=== PATIENT | male | born 1950 | race Caucasian/White ===

== ENCOUNTER 2020-07-07 14:06 | Inpatient (IN) | payer OTHER ==
[~2020-07-07] VITALS: Ht 167.6 cm; Wt 108.0 kg
[~2020-07-07 14:06] MED LIST: ASPIR 8181 MG PO; ATORVASTATIN CA80 MG PO; CARBIDOPA-LEVO1 EACH PO; CLOPIDOGREL75 MG PO; FISH OIL 1,2001 EACH PO; ISOSORBIDE DINI30 MG PO; JANUMET 50-5001 EACH PO; LISINOPRIL5 MG PO; METOPROLOL SUCC25 MG PO; REQUIP XL4 MG PO; SERTRALINE HCL50 MG PO
[2020-07-07] MEDS ORDERED: SINEMET PO (14:37)
[2020-07-07 14:38] LABS: BASOPHILS % 0.4 % (0.0-1.0); EOSINOPHILS # (AUTO) 0.2 (0.0-0.4); EOSINOPHILS % 3.4 % (0.0-6.0); HEMATOCRIT 26.8 % (38.2-49.6); HEMOGLOBIN 8.9 g/dL (14.0-18.0); LYMPHOCYTES % 14.9 % (18.0-39.1); MEAN CORPUSCULAR HEMOGLOBIN 31.7 pg (28-32); MEAN CORPUSCULAR HGB CONC 33.2 g/dL (31-35); MEAN CORPUSCULAR VOLUME 95.4 fL (81-99); MONOCYTES # (AUTO) 0.6 (0.2-0.8); MONOCYTES % 8.8 % (4.4-11.3); NEUTROPHILS # (AUTO) 4.8 (2.1-6.9); NEUTROPHILS % 72.2 % (38.7-80.0); PLATELET COUNT 277 x10e3/uL (140-360); RED BLOOD COUNT 2.81 x10e6/uL (4.3-5.7); RED CELL DISTRIBUTION WIDTH 14.6 % (11.7-14.4)
[2020-07-07] MEDS ORDERED: ELIQUIS5 MG PO (14:44)
[2020-07-07] MEDS ORDERED: NOVOLOG MI100 UNIT/1 SC (14:44)
[2020-07-07] MEDS ORDERED: GENTEAL TEARS SE8 ML (14:44)
[2020-07-07] MEDS ORDERED: METOPROLOL SUCC25 MG PO (14:44)
[2020-07-07] MEDS ORDERED: FEROSUL325 MG PO (14:44)
[2020-07-07] MEDS ORDERED: REFRESH PLUS1 EACH OU (14:44)
[2020-07-07] MEDS ORDERED: ROPINIROLE HCL1 MG PO (14:44)
[2020-07-07] MEDS ORDERED: LASIX20 MG PO (14:44)
[2020-07-07] MEDS ORDERED: VOLTAREN-XR100 MG PO (14:44)
[2020-07-07] MEDS ORDERED: ISOSORBIDE MONO30 MG PO (14:44)
[2020-07-07] MEDS ORDERED: ENTACAPONE200 MG PO (14:44)
[2020-07-07] MEDS ORDERED: POTASSIUM CHLO10 ME1 PO (14:44)
[2020-07-07] MEDS ORDERED: TYLENOL # 31 EA PO (14:44)
[2020-07-07] MEDS ORDERED: BASAGLAR K100 UNIT/1 SQ (14:45)
[2020-07-07 14:54] LABS: INR 1.03; PROTHROMBIN TIME 14.1 seconds (11.9-14.5)
[2020-07-07 14:55] LABS: ALBUMIN 3.1 g/dL (3.5-5.0); ALBUMIN/GLOBULIN RATIO 0.9 (0.8-2.0); ANION GAP 16.1 mmol/L (8-16); CALCIUM 8.5 mg/dL (8.4-10.2); CREATININE, SERUM 1.22 mg/dL (0.72-1.25); MAGNESIUM 2.1 MG/DL (1.3-2.1); PARTIAL THROMBOPLASTIN TIME 38.5 seconds (23.8-35.5); POTASSIUM 4.1 mmol/L (3.5-5.1)
[2020-07-07 15:34] LABS: CREATINE KINASE MB 2.3 ng/mL (0-5.0); THYROID STIMULATING HORMONE 0.815 uIU/mL (0.350-4.940)
[2020-07-07] MEDS: MEROPENEM 1GM 100 ML IV SCH (15:34)
[2020-07-07 15:55] LABS: COLOR,URINE ORANGE (YELLOW)
[2020-07-07 15:56] LABS: CLARITY,URINE SL CLOUDY (CLEAR); KETONES,URINE 1+ (NEGATIVE); LEUKOCYTE ESTERASE ,URINE NEGATIVE (NEGATIVE); NITRITE,URINE NEGATIVE (NEGATIVE); PROTEIN,URINE DIPSTICK 1+ (NEGATIVE); URINE UROBILINOGEN 0.2 mg/dL (0.2 - 1)
[2020-07-07 16:09] LABS: BACTERIA,URINE MODERATE /HPF; EPITHELIAL CELLS,URINE FEW /LPF
[2020-07-07] MEDS ORDERED: FUROSEMIDE INJ 10 MG/ML 2 ML VIAL IV ONE (17:45)
[2020-07-07] MEDS ORDERED: ONDANSETRON HCL INJ 2MG/ML 2ML 2 MG/ML VIAL IV PRN (18:00)
[2020-07-07 20:20] VITALS: BP 123/58
[2020-07-07 21:45] VITALS: BP 123/58
[2020-07-07] MEDS ORDERED: SINEMET 25-1001 EACH PO (22:31)
[2020-07-07] MEDS ORDERED: ACETAMINOPHEN/CODEINE 300MG - 30MG TAB PO PRN (22:45)
[2020-07-08] VITALS (8 sets, daily range): BP systolic 99–135; BP diastolic 53–72
[2020-07-08 07:59] LABS: CREATINE KINASE MB 1.2 ng/mL (0-5.0)
[2020-07-08 08:16] LABS: ALANINE AMINOTRANSFERASE 23 IU/L (0-55); ALBUMIN/GLOBULIN RATIO 0.9 (0.8-2.0); ALKALINE PHOSPHATASE 95 IU/L (40-150); ANION GAP 13.2 mmol/L (8-16); BLOOD UREA NITROGEN 21 mg/dL (7-26); BUN/CREATININE RATIO 21 (6-25); CALCIUM 8.5 mg/dL (8.4-10.2); CARBON DIOXIDE 24 mmol/L (22-29); CHLORIDE 104 mmol/L (98-107); CHOL/HDL RATIO 4.4 (3.9-4.7); CHOLESTEROL 153 MD/DL (0-199); CREATININE, SERUM 1.02 mg/dL (0.72-1.25); EST GLOMERULAR FILTRATION RATE > 60 ML/MIN (60-); GLUCOSE 186 mg/dL (74-118); HDL CHOLESTEROL 35 MG/DL (40-60); LDL CHOLESTEROL 91 MG/DL (60-130); POTASSIUM 4.2 mmol/L (3.5-5.1); SODIUM 137 mmol/L (136-145); TRIGLYCERIDES 137 MG/DL (0-149)
[2020-07-08] MEDS ORDERED: DEXTROSE 50% SYRINGE 50 ML IV PRN (08:30)
[2020-07-08] MEDS ORDERED: FUROSEMIDE 20 MG TAB PO SCH (09:00)
[2020-07-08] MEDS ORDERED: APIXABAN 5 MG TABLET PO SCH (09:00)
[2020-07-08] MEDS: ENTACAPONE PO SCH ×4 (09:00→20:30)
[2020-07-08] MEDS ORDERED: INSULIN ASPART 70/30 100 UNITS/ML VIAL SC SCH (09:00)
[2020-07-08] MEDS ORDERED: ROPINIROLE HCL 1 MG TAB PO SCH (09:00)
[2020-07-08] MEDS: MEROPENEM 1GM 100 ML IV SCH ×4 (09:05→23:45)
[2020-07-08] MEDS: INSULIN ASPART 70/30 100 UNITS/ML VIAL SC SCH ×3 (09:08→16:18)
[2020-07-08] MEDS: ISOSORBIDE MONONITRATE 30 MG TAB CR PO SCH (09:11)
[2020-07-08] MEDS: FERROUS SULFATE 325 MG TAB PO SCH ×2 (09:11→17:51)
[2020-07-08] MEDS: ATORVASTATIN 40 MG TAB PO SCH (09:12)
[2020-07-08] MEDS: CARBIDOPA/LEVODOPA 25/100 TAB PO SCH ×4 (09:12→20:30)
[2020-07-08 09:14] LABS: BASOPHILS % 0.2 % (0.0-1.0); EOSINOPHILS # (AUTO) 0.2 (0.0-0.4); EOSINOPHILS % 1.9 % (0.0-6.0); HEMATOCRIT 28.6 % (38.2-49.6); HEMOGLOBIN 9.7 g/dL (14.0-18.0); LYMPHOCYTES # (AUTO) 0.8 (1.0-3.2); LYMPHOCYTES % 8.5 % (18.0-39.1); MEAN CORPUSCULAR HEMOGLOBIN 32.1 pg (28-32); MEAN CORPUSCULAR HGB CONC 33.9 g/dL (31-35); MEAN CORPUSCULAR VOLUME 94.7 fL (81-99); MONOCYTES # (AUTO) 0.7 (0.2-0.8); MONOCYTES % 7.3 % (4.4-11.3); NEUTROPHILS # (AUTO) 7.6 (2.1-6.9); NEUTROPHILS % 81.8 % (38.7-80.0); PLATELET COUNT 275 x10e3/uL (140-360); RED BLOOD COUNT 3.02 x10e6/uL (4.3-5.7); RED CELL DISTRIBUTION WIDTH 14.4 % (11.7-14.4)
[2020-07-08 09:16] LABS: THYROID STIMULATING HORMONE 0.773 uIU/mL (0.350-4.940)
[2020-07-08] MEDS: POTASSIUM CHLORIDE 10MEQ EA PO SCH ×2 (09:22→17:51)
[2020-07-08] MEDS: METOPROLOL SUCCINATE 25 MG TAB XL PO SCH (09:23)
[2020-07-08] MEDS: ROPINIROLE HCL 2 MG TAB PO SCH ×4 (09:23→20:30)
[2020-07-08] MEDS: DICLOFENAC SOD 50 MG TAB PO SCH (09:25)
[2020-07-08] MEDS: FUROSEMIDE INJ 10 MG/ML 4 ML VIAL IV SCH (12:25)
[2020-07-08] MEDS: INSULIN LISPRO 100 UNIT/1 ML 3ML VIAL SQ SCH ×3 (12:25→20:23)
[2020-07-08 15:18] LABS: CREATINE KINASE MB 1.1 ng/mL (0-5.0)
[2020-07-08] MEDS: INSULIN GLARGINE 100 UNITS/ML VIAL SQ SCH (20:30)
[2020-07-08] MEDS: APIXABAN 5 MG TABLET PO SCH (20:30)
[2020-07-08] MEDS ORDERED: INSULIN GLARGINE 100 UNITS/ML VIAL SQ SCH (21:00)
[2020-07-09] VITALS (7 sets, daily range): BP systolic 101–124; BP diastolic 53–74
[2020-07-09 05:54] LABS: BASOPHILS % 0.3 % (0.0-1.0); EOSINOPHILS # (AUTO) 0.3 (0.0-0.4); EOSINOPHILS % 3.4 % (0.0-6.0); HEMATOCRIT 28.4 % (38.2-49.6); HEMOGLOBIN 9.4 g/dL (14.0-18.0); LYMPHOCYTES # (AUTO) 0.8 (1.0-3.2); LYMPHOCYTES % 10.3 % (18.0-39.1); MEAN CORPUSCULAR HEMOGLOBIN 31.8 pg (28-32); MEAN CORPUSCULAR HGB CONC 33.1 g/dL (31-35); MEAN CORPUSCULAR VOLUME 95.9 fL (81-99); MONOCYTES # (AUTO) 0.6 (0.2-0.8); NEUTROPHILS # (AUTO) 5.7 (2.1-6.9); NEUTROPHILS % 77.7 % (38.7-80.0); PLATELET COUNT 269 x10e3/uL (140-360); RED BLOOD COUNT 2.96 x10e6/uL (4.3-5.7); RED CELL DISTRIBUTION WIDTH 14.5 % (11.7-14.4)
[2020-07-09 06:30] LABS: ANION GAP 15.1 mmol/L (8-16); BLOOD UREA NITROGEN 23 mg/dL (7-26); BUN/CREATININE RATIO 26 (6-25); CALCIUM 8.2 mg/dL (8.4-10.2); CARBON DIOXIDE 23 mmol/L (22-29); CHLORIDE 105 mmol/L (98-107); CREATININE, SERUM 0.87 mg/dL (0.72-1.25); EST GLOMERULAR FILTRATION RATE > 60 ML/MIN (60-); GLUCOSE 128 mg/dL (74-118); POTASSIUM 4.1 mmol/L (3.5-5.1); SODIUM 139 mmol/L (136-145)
[2020-07-09 06:44] LABS: MAGNESIUM 2.1 MG/DL (1.3-2.1); PHOSPHORUS 3.4 MG/DL (2.3-4.7)
[2020-07-09] MEDS: FUROSEMIDE INJ 10 MG/ML 4 ML VIAL IV SCH ×2 (08:23→12:07)
[2020-07-09] MEDS: APIXABAN 5 MG TABLET PO SCH ×2 (08:26→21:07)
[2020-07-09] MEDS: ENTACAPONE PO SCH ×5 (08:26→21:07)
[2020-07-09] MEDS: FERROUS SULFATE 325 MG TAB PO SCH ×2 (08:26→17:00)
[2020-07-09] MEDS: MEROPENEM 1GM 100 ML IV SCH ×2 (08:26→16:24)
[2020-07-09] MEDS: POTASSIUM CHLORIDE 10MEQ EA PO SCH ×2 (08:27→17:00)
[2020-07-09] MEDS: ISOSORBIDE MONONITRATE 30 MG TAB CR PO SCH (08:27)
[2020-07-09] MEDS: ATORVASTATIN 40 MG TAB PO SCH (08:28)
[2020-07-09] MEDS: METOPROLOL SUCCINATE 25 MG TAB XL PO SCH (08:28)
[2020-07-09] MEDS: ROPINIROLE HCL 2 MG TAB PO SCH ×5 (08:28→21:07)
[2020-07-09] MEDS: CARBIDOPA/LEVODOPA 25/100 TAB PO SCH ×5 (08:28→21:07)
[2020-07-09] MEDS: DICLOFENAC SOD 50 MG TAB PO SCH (08:29)
[2020-07-09] MEDS: INSULIN ASPART 70/30 100 UNITS/ML VIAL SC SCH ×3 (08:34→16:24)
[2020-07-09] MEDS: INSULIN LISPRO 100 UNIT/1 ML 3ML VIAL SQ SCH ×4 (08:35→20:40)
[2020-07-09] MEDS: GLUCAGON FOR INJ 1 MG VIAL IV STA (19:45)
[2020-07-09] MEDS: INSULIN GLARGINE 100 UNITS/ML VIAL SQ SCH (20:40)
[2020-07-10] VITALS (10 sets, daily range): BP systolic 96–118; BP diastolic 54–72
[2020-07-10] MEDS: MEROPENEM 1GM 100 ML IV SCH ×2 (00:17→09:05)
[2020-07-10 06:16] LABS: BLOOD UREA NITROGEN 21 mg/dL (7-26); BUN/CREATININE RATIO 25 (6-25); CALCIUM 8.4 mg/dL (8.4-10.2); CARBON DIOXIDE 24 mmol/L (22-29); CHLORIDE 104 mmol/L (98-107); CREATININE, SERUM 0.85 mg/dL (0.72-1.25); EST GLOMERULAR FILTRATION RATE > 60 ML/MIN (60-); GLUCOSE 138 mg/dL (74-118); SODIUM 139 mmol/L (136-145)
[2020-07-10] MEDS: ATORVASTATIN 40 MG TAB PO SCH (09:00)
[2020-07-10] MEDS: ENTACAPONE PO SCH ×4 (09:05→20:22)
[2020-07-10] MEDS: APIXABAN 5 MG TABLET PO SCH ×2 (09:05→20:22)
[2020-07-10] MEDS: FUROSEMIDE INJ 10 MG/ML 4 ML VIAL IV SCH ×2 (09:05→13:00)
[2020-07-10] MEDS: FERROUS SULFATE 325 MG TAB PO SCH ×2 (09:06→17:39)
[2020-07-10] MEDS: METOPROLOL SUCCINATE 25 MG TAB XL PO SCH (09:06)
[2020-07-10] MEDS: ROPINIROLE HCL 2 MG TAB PO SCH ×4 (09:06→20:22)
[2020-07-10] MEDS: CARBIDOPA/LEVODOPA 25/100 TAB PO SCH ×4 (09:06→20:22)
[2020-07-10] MEDS: DICLOFENAC SOD 50 MG TAB PO SCH (09:06)
[2020-07-10] MEDS: ISOSORBIDE MONONITRATE 30 MG TAB CR PO SCH (09:06)
[2020-07-10] MEDS: POTASSIUM CHLORIDE 10MEQ EA PO SCH ×2 (09:06→17:40)
[2020-07-10] MEDS: INSULIN ASPART 70/30 100 UNITS/ML VIAL SC SCH ×3 (09:09→15:49)
[2020-07-10] MEDS: INSULIN LISPRO 100 UNIT/1 ML 3ML VIAL SQ SCH ×4 (09:14→20:23)
[2020-07-10] MEDS: AMOXICILLIN/CLAV (ORAL SUSP) 250 MG/5 ML SUSP PO SCH (17:39)
[2020-07-10] MEDS: INSULIN GLARGINE 100 UNITS/ML VIAL SQ SCH (20:24)
[2020-07-11 00:41] VITALS: BP 109/64
[2020-07-11 04:00] VITALS: BP 104/61
[2020-07-11 05:47] LABS: BASOPHILS % 0.5 % (0.0-1.0); EOSINOPHILS # (AUTO) 0.3 (0.0-0.4); EOSINOPHILS % 5.6 % (0.0-6.0); LYMPHOCYTES % 16.5 % (18.0-39.1); MEAN CORPUSCULAR HEMOGLOBIN 31.3 pg (28-32); MEAN CORPUSCULAR HGB CONC 33.3 g/dL (31-35); MONOCYTES # (AUTO) 0.6 (0.2-0.8); MONOCYTES % 9.5 % (4.4-11.3); NEUTROPHILS % 67.7 % (38.7-80.0); PLATELET COUNT 309 x10e3/uL (140-360); RED BLOOD COUNT 3.19 x10e6/uL (4.3-5.7); RED CELL DISTRIBUTION WIDTH 14.1 % (11.7-14.4)
[2020-07-11 06:09] LABS: ANION GAP 14.1 mmol/L (8-16); BLOOD UREA NITROGEN 23 mg/dL (7-26); BUN/CREATININE RATIO 26 (6-25); CALCIUM 8.5 mg/dL (8.4-10.2); CARBON DIOXIDE 25 mmol/L (22-29); CHLORIDE 103 mmol/L (98-107); CREATININE, SERUM 0.88 mg/dL (0.72-1.25); EST GLOMERULAR FILTRATION RATE > 60 ML/MIN (60-); GLUCOSE 103 mg/dL (74-118); POTASSIUM 4.1 mmol/L (3.5-5.1); SODIUM 138 mmol/L (136-145)
[2020-07-11] MEDS: INSULIN LISPRO 100 UNIT/1 ML 3ML VIAL SQ SCH ×2 (07:30→12:10)
[2020-07-11 07:47] VITALS: BP 122/63
[2020-07-11 08:30] VITALS: BP 122/63
[2020-07-11] MEDS: ENTACAPONE PO SCH (08:43)
[2020-07-11] MEDS: INSULIN ASPART 70/30 100 UNITS/ML VIAL SC SCH ×2 (08:43→12:09)
[2020-07-11] MEDS: FUROSEMIDE INJ 10 MG/ML 4 ML VIAL IV SCH (08:43)
[2020-07-11] MEDS: APIXABAN 5 MG TABLET PO SCH (08:44)
[2020-07-11] MEDS: FERROUS SULFATE 325 MG TAB PO SCH (08:44)
[2020-07-11] MEDS: AMOXICILLIN/CLAV (ORAL SUSP) 250 MG/5 ML SUSP PO SCH (08:44)
[2020-07-11] MEDS: ISOSORBIDE MONONITRATE 30 MG TAB CR PO SCH (08:44)
[2020-07-11] MEDS: POTASSIUM CHLORIDE 10MEQ EA PO SCH (08:46)
[2020-07-11] MEDS: ATORVASTATIN 40 MG TAB PO SCH (08:47)
[2020-07-11] MEDS: ROPINIROLE HCL 2 MG TAB PO SCH (08:47)
[2020-07-11] MEDS: CARBIDOPA/LEVODOPA 25/100 TAB PO SCH (08:47)
[2020-07-11] MEDS: METOPROLOL SUCCINATE 25 MG TAB XL PO SCH (08:47)
[2020-07-11] MEDS: DICLOFENAC SOD 50 MG TAB PO SCH (08:47)
[2020-07-11 11:43] VITALS: BP 105/62
== END 2020-07-11 12:38 | disposition home or self-care (01) | DRG 293 ==
LOC: ER 14:23 → ERHOLD 18:07 → MED/SURG 20:19
PROVIDERS: ADMIT Internal Medicine; ATTEND Internal Medicine
DX: I11.0 Hypertensive heart disease with heart failure (principal); I50.33 Acute on chronic diastolic (congestive) heart failure; E11.21 Type 2 diabetes mellitus with diabetic nephropathy; G20 Parkinson's disease; E66.01 Morbid (severe) obesity due to excess calories; Z68.38 Body mass index [BMI] 38.0-38.9, adult; I25.10 Atherosclerotic heart disease of native coronary artery without angina pectoris; Z95.5 Presence of coronary angioplasty implant and graft; E11.42 Type 2 diabetes mellitus with diabetic polyneuropathy; Z79.4 Long term (current) use of insulin; K22.8 Other specified diseases of esophagus; T18.120A Food in esophagus causing compression of trachea, initial encounter; Z20.822 Contact with and (suspected) exposure to COVID-19; S80.812A Abrasion, left lower leg, initial encounter; S80.811A Abrasion, right lower leg, initial encounter; I48.91 Unspecified atrial fibrillation; G25.81 Restless legs syndrome
CPT/HCPCS: 36415; 71045; 80048; 80053; 80061; 81001; 82550; 82553; 82607; 82746; 82948; 83036; 83540; 83735; 83880; 84100; 84443; 84466; 84484; 85025; 85610; 85730; 87040; 87086; 93005; 93306; 96372; 99284; J1610; J1815; J1940; J7799; U0002

== ENCOUNTER 2020-09-22 02:56 | Emergency (ER) | payer MEDICARE, OTHER ==
[~2020-09-22] VITALS: Ht 320 cm; Wt 108.0 kg
[~2020-09-22 02:56] MED LIST changes: +BASAGLAR K100 UNIT/1 SQ; +ELIQUIS5 MG PO; +ENTACAPONE200 MG PO; +FEROSUL325 MG PO; +GENTEAL TEARS SE8 ML; +ISOSORBIDE MONO30 MG PO; +LASIX20 MG PO; +NOVOLOG MI100 UNIT/1 SC; +POTASSIUM CHLO10 ME1 PO; +REFRESH PLUS1 EACH OU; +ROPINIROLE HCL1 MG PO; +SINEMET 25-1001 EACH PO; +SINEMET PO; +TYLENOL # 31 EA PO; +VOLTAREN-XR100 MG PO
[2020-09-22 03:51] LABS: BASOPHILS % 0.5 % (0.0-1.0); EOSINOPHILS # (AUTO) 0.2 (0.0-0.4); EOSINOPHILS % 2.5 % (0.0-6.0); HEMATOCRIT 33.4 % (38.2-49.6); HEMOGLOBIN 11.4 g/dL (14.0-18.0); LYMPHOCYTES # (AUTO) 1.2 (1.0-3.2); LYMPHOCYTES % 18.9 % (18.0-39.1); MEAN CORPUSCULAR HGB CONC 34.1 g/dL (31-35); MEAN CORPUSCULAR VOLUME 90.8 fL (81-99); MONOCYTES # (AUTO) 0.6 (0.2-0.8); MONOCYTES % 9.1 % (4.4-11.3); NEUTROPHILS # (AUTO) 4.4 (2.1-6.9); NEUTROPHILS % 68.5 % (38.7-80.0); PLATELET COUNT 250 x10e3/uL (140-360); RED BLOOD COUNT 3.68 x10e6/uL (4.3-5.7); RED CELL DISTRIBUTION WIDTH 13.2 % (11.7-14.4)
[2020-09-22 04:12] LABS: ALANINE AMINOTRANSFERASE 20 IU/L (0-55); ALBUMIN 3.6 g/dL (3.5-5.0); ALKALINE PHOSPHATASE 117 IU/L (40-150); ANION GAP 17.4 mmol/L (8-16); BLOOD UREA NITROGEN 27 mg/dL (7-26); BUN/CREATININE RATIO 21 (6-25); CALCIUM 9.2 mg/dL (8.4-10.2); CARBON DIOXIDE 24 mmol/L (22-29); CHLORIDE 101 mmol/L (98-107); CREATINE KINASE 123 IU/L (30-200); CREATININE, SERUM 1.31 mg/dL (0.72-1.25); EST GLOMERULAR FILTRATION RATE 54 ML/MIN (60-); GLUCOSE 365 mg/dL (74-118); POTASSIUM 4.4 mmol/L (3.5-5.1); SODIUM 138 mmol/L (136-145)
[2020-09-22 05:26] VITALS: BP 124/68
== END 2020-09-22 05:40 | disposition home or self-care (01) ==
LOC: ER 03:10
DX: R20.2 Paresthesia of skin (principal); M79.605 Pain in left leg; M79.604 Pain in right leg
CPT/HCPCS: 36415; 71045; 80053; 82550; 82553; 83880; 84484; 85025; 93970; 99284

== ENCOUNTER 2020-10-19 15:09 | Emergency (ER) | payer MEDICARE ==
[~2020-10-19] VITALS: Ht 320 cm; Wt 108.0 kg
[2020-10-19 15:51] LABS: BASOPHILS % 0.3 % (0.0-1.0); EOSINOPHILS # (AUTO) 0.1 (0.0-0.4); EOSINOPHILS % 0.8 % (0.0-6.0); HEMOGLOBIN 11.1 g/dL (14.0-18.0); LYMPHOCYTES # (AUTO) 0.6 (1.0-3.2); LYMPHOCYTES % 7.8 % (18.0-39.1); MEAN CORPUSCULAR HEMOGLOBIN 30.7 pg (28-32); MEAN CORPUSCULAR HGB CONC 33.6 g/dL (31-35); MEAN CORPUSCULAR VOLUME 91.2 fL (81-99); MONOCYTES # (AUTO) 0.4 (0.2-0.8); MONOCYTES % 5.7 % (4.4-11.3); NEUTROPHILS # (AUTO) 6.1 (2.1-6.9); NEUTROPHILS % 85.1 % (38.7-80.0); PLATELET COUNT 175 x10e3/uL (140-360); RED BLOOD COUNT 3.62 x10e6/uL (4.3-5.7)
[2020-10-19 16:10] LABS: ALBUMIN 3.4 g/dL (3.5-5.0); ALBUMIN/GLOBULIN RATIO 1.1 (0.8-2.0); ANION GAP 14.9 mmol/L (8-16); CALCIUM 8.6 mg/dL (8.4-10.2); CREATININE, SERUM 1.13 mg/dL (0.72-1.25); POTASSIUM 3.9 mmol/L (3.5-5.1)
[2020-10-19] MEDS ORDERED: INSULIN REGULAR, HUMAN 100 UNIT/1 ML SQ ONE (16:30)
[2020-10-19] MEDS ORDERED: SODIUM CHLORIDE 0.9% 1000ML 1,000 ML IV SCH (16:30)
[2020-10-19 17:48] LABS: CLARITY,URINE CLEAR (CLEAR); COLOR,URINE YELLOW (YELLOW)
[2020-10-19 17:49] LABS: KETONES,URINE NEGATIVE (NEGATIVE); LEUKOCYTE ESTERASE ,URINE NEGATIVE (NEGATIVE); NITRITE,URINE NEGATIVE (NEGATIVE); PROTEIN,URINE DIPSTICK NEGATIVE (NEGATIVE); URINE UROBILINOGEN 0.2 mg/dL (0.2 - 1)
[2020-10-19 17:55] LABS: BACTERIA,URINE FEW /HPF; EPITHELIAL CELLS,URINE RARE /LPF
== END 2020-10-19 20:45 | disposition other institution (70) ==
LOC: ER 15:15
DX: E11.65 Type 2 diabetes mellitus with hyperglycemia (principal); R26.89 Other abnormalities of gait and mobility; Z91.81 History of falling; Z20.822 Contact with and (suspected) exposure to COVID-19; I50.9 Heart failure, unspecified; D64.9 Anemia, unspecified; I25.10 Atherosclerotic heart disease of native coronary artery without angina pectoris; I25.2 Old myocardial infarction
CPT/HCPCS: 36415; 70450; 71045; 72125; 80053; 81001; 82948; 84484; 85025; 93005; 99284; J1817; U0002

== ENCOUNTER 2021-03-23 10:34 | Inpatient (IN) | payer MEDICARE ==
[~2021-03-23] VITALS: Ht 167.6 cm; Wt 108.0 kg
[2021-03-23 12:55] LABS: BASOPHILS % 0.3 % (0.0-1.0); EOSINOPHILS # (AUTO) 0.1 (0.0-0.4); EOSINOPHILS % 1.4 % (0.0-6.0); HEMATOCRIT 28.2 % (38.2-49.6); HEMOGLOBIN 9.2 g/dL (14.0-18.0); LYMPHOCYTES # (AUTO) 0.5 (1.0-3.2); MEAN CORPUSCULAR HEMOGLOBIN 31.6 pg (28-32); MEAN CORPUSCULAR HGB CONC 32.6 g/dL (31-35); MEAN CORPUSCULAR VOLUME 96.9 fL (81-99); MONOCYTES # (AUTO) 0.4 (0.2-0.8); MONOCYTES % 6.5 % (4.4-11.3); NEUTROPHILS # (AUTO) 5.4 (2.1-6.9); NEUTROPHILS % 83.5 % (38.7-80.0); PLATELET COUNT 228 x10e3/uL (140-360); RED BLOOD COUNT 2.91 x10e6/uL (4.3-5.7); RED CELL DISTRIBUTION WIDTH 13.3 % (11.7-14.4)
[2021-03-23] MEDS: Vancomycin IV 1 GM in SODIUM CHLORIDE 0.9% 250ML 250 ML IV SCH (13:16)
[2021-03-23] MEDS: PIPERACILLIN/TAZOBACTAM 3.375 GM in SODIUM CHLORIDE 0.9% 50ML 50 ML IV SCH ×2 (13:16→21:50)
[2021-03-23 13:18] LABS: ALBUMIN 3.8 g/dL (3.5-5.0); ALBUMIN/GLOBULIN RATIO 1.3 (0.8-2.0); ANION GAP 13.6 mmol/L (8-16); BLOOD UREA NITROGEN 20 mg/dL (7-26); BUN/CREATININE RATIO 16 (6-25); CALCIUM 9.8 mg/dL (8.4-10.2); CARBON DIOXIDE 23 mmol/L (22-29); CHLORIDE 107 mmol/L (98-107); CREATINE KINASE 184 IU/L (30-200); CREATININE, SERUM 1.24 mg/dL (0.72-1.25); EST GLOMERULAR FILTRATION RATE 58 ML/MIN (60-); GLUCOSE 256 mg/dL (74-118); POTASSIUM 3.6 mmol/L (3.5-5.1); SODIUM 140 mmol/L (136-145)
[2021-03-23 13:39] LABS: ALKALINE PHOSPHATASE 131 IU/L (40-150)
[2021-03-23 14:04] LABS: ALANINE AMINOTRANSFERASE < 6 IU/L (0-55)
[2021-03-23] MEDS ORDERED: SODIUM CHLORIDE 0.9% 1000ML 1,000 ML IV SCH (15:45)
[2021-03-23] MEDS ORDERED: ONDANSETRON HCL INJ 2MG/ML 2ML 2 MG/ML VIAL IV PRN (15:45)
[2021-03-23] MEDS ORDERED: DEXTROSE 50% SYRINGE 50 ML IV PRN (15:45)
[2021-03-23] MEDS: INSULIN LISPRO 100 UNIT/1 ML 3ML VIAL SQ SCH ×2 (16:38→20:45)
[2021-03-23 17:01] VITALS: BP 120/57
[2021-03-23 18:15] VITALS: BP 120/57
[2021-03-23 18:19] VITALS: BP 120/57
[2021-03-23 20:45] VITALS: BP 117/54
[2021-03-23] MEDS: CARBIDOPA/LEVODOPA 25/100 TAB PO SCH (20:45)
[2021-03-23] MEDS: ROPINIROLE HCL 1 MG TAB PO SCH (20:45)
[2021-03-23 20:54] VITALS: BP 117/54
[2021-03-23] MEDS: ENTACAPONE 200 MG PO SCH (20:55)
[2021-03-24] VITALS (8 sets, daily range): BP systolic 94–119; BP diastolic 50–67
[2021-03-24] MEDS: CARBIDOPA/LEVODOPA 25/100 TAB PO SCH ×4 (03:45→21:13)
[2021-03-24] MEDS: ROPINIROLE HCL 1 MG TAB PO SCH ×2 (03:45→09:00)
[2021-03-24 05:34] LABS: BASOPHILS % 0.4 % (0.0-1.0); EOSINOPHILS # (AUTO) 0.2 (0.0-0.4); EOSINOPHILS % 3.8 % (0.0-6.0); HEMATOCRIT 25.3 % (38.2-49.6); HEMOGLOBIN 8.4 g/dL (14.0-18.0); LYMPHOCYTES # (AUTO) 0.5 (1.0-3.2); LYMPHOCYTES % 9.7 % (18.0-39.1); MEAN CORPUSCULAR HEMOGLOBIN 31.2 pg (28-32); MEAN CORPUSCULAR HGB CONC 33.2 g/dL (31-35); MEAN CORPUSCULAR VOLUME 94.1 fL (81-99); MONOCYTES # (AUTO) 0.3 (0.2-0.8); MONOCYTES % 5.9 % (4.4-11.3); NEUTROPHILS # (AUTO) 3.8 (2.1-6.9); PLATELET COUNT 197 x10e3/uL (140-360); RED BLOOD COUNT 2.69 x10e6/uL (4.3-5.7); RED CELL DISTRIBUTION WIDTH 13.3 % (11.7-14.4)
[2021-03-24 06:05] LABS: ALBUMIN 2.9 g/dL (3.5-5.0); ALKALINE PHOSPHATASE 111 IU/L (40-150); ANION GAP 12.3 mmol/L (8-16); BLOOD UREA NITROGEN 14 mg/dL (7-26); BUN/CREATININE RATIO 13 (6-25); CALCIUM 8.6 mg/dL (8.4-10.2); CARBON DIOXIDE 21 mmol/L (22-29); CHLORIDE 110 mmol/L (98-107); CREATINE KINASE 112 IU/L (30-200); CREATININE, SERUM 1.06 mg/dL (0.72-1.25); EST GLOMERULAR FILTRATION RATE 69 ML/MIN (60-); GLUCOSE 153 mg/dL (74-118); POTASSIUM 3.3 mmol/L (3.5-5.1); SODIUM 140 mmol/L (136-145)
[2021-03-24 06:10] LABS: ALANINE AMINOTRANSFERASE < 6 IU/L (0-55)
[2021-03-24] MEDS: PIPERACILLIN/TAZOBACTAM 3.375 GM in SODIUM CHLORIDE 0.9% 50ML 50 ML IV SCH ×3 (06:17→23:00)
[2021-03-24] MEDS: INSULIN LISPRO 100 UNIT/1 ML 3ML VIAL SQ SCH ×4 (07:30→21:13)
[2021-03-24] MEDS ORDERED: ONDANSETRON HCL 4 MG ORAL DISINTEGRATING TAB PO PRN (08:00)
[2021-03-24] MEDS: ENTACAPONE 200 MG PO SCH ×3 (09:00→21:12)
[2021-03-24] MEDS: FERROUS SULFATE 325 MG TAB PO SCH ×2 (09:00→18:00)
[2021-03-24] MEDS: DICLOFENAC SOD 50 MG TAB PO SCH (09:00)
[2021-03-24] MEDS: METOPROLOL SUCCINATE 25 MG TAB XL PO SCH (09:00)
[2021-03-24] MEDS: ISOSORBIDE MONONITRATE 30 MG TAB CR PO SCH (09:00)
[2021-03-24] MEDS: POTASSIUM CHLORIDE 10MEQ EA PO SCH ×2 (09:00→18:00)
[2021-03-24] MEDS ORDERED: APIXABAN 5 MG TABLET PO SCH (09:00)
[2021-03-24] MEDS: Vancomycin IV 1 GM in SODIUM CHLORIDE 0.9% 250ML 250 ML IV SCH ×2 (10:00→21:12)
[2021-03-24 10:57] LABS: THYROID STIMULATING HORMONE 0.658 uIU/mL (0.350-4.940)
[2021-03-24] MEDS ORDERED: GADOBENATE DIMEGLUMINE 1 ML IV ONE (11:28)
[2021-03-24] MEDS: ENOXAPARIN INJ 80 MG/0.8 ML SYR SC SCH ×2 (12:00→21:12)
[2021-03-24] MEDS ORDERED: ROPINIROLE HCL 2 MG TAB PO SCH (13:00)
[2021-03-24 17:07] LABS: CREATINE KINASE 91 IU/L (30-200)
[2021-03-24] MEDS: ROPINIROLE HCL 2 MG TAB PO SCH (21:12)
[2021-03-24] MEDS: ATORVASTATIN 40 MG TAB PO SCH (21:12)
[2021-03-25] VITALS (8 sets, daily range): BP systolic 93–127; BP diastolic 49–60
[2021-03-25] MEDS: CARBIDOPA/LEVODOPA 25/100 TAB PO SCH ×3 (05:18→18:00)
[2021-03-25] MEDS: ENTACAPONE 200 MG PO SCH ×3 (05:18→18:00)
[2021-03-25] MEDS: ROPINIROLE HCL 2 MG TAB PO SCH ×3 (05:18→18:00)
[2021-03-25] MEDS: PIPERACILLIN/TAZOBACTAM 3.375 GM in SODIUM CHLORIDE 0.9% 50ML 50 ML IV SCH ×3 (06:07→22:57)
[2021-03-25 06:28] LABS: BASOPHILS % 0.6 % (0.0-1.0); EOSINOPHILS # (AUTO) 0.3 (0.0-0.4); EOSINOPHILS % 5.3 % (0.0-6.0); HEMOGLOBIN 8.7 g/dL (14.0-18.0); LYMPHOCYTES # (AUTO) 0.6 (1.0-3.2); LYMPHOCYTES % 10.6 % (18.0-39.1); MEAN CORPUSCULAR HEMOGLOBIN 31.4 pg (28-32); MEAN CORPUSCULAR HGB CONC 32.2 g/dL (31-35); MEAN CORPUSCULAR VOLUME 97.5 fL (81-99); MONOCYTES # (AUTO) 0.4 (0.2-0.8); MONOCYTES % 6.6 % (4.4-11.3); NEUTROPHILS # (AUTO) 4.1 (2.1-6.9); NEUTROPHILS % 76.7 % (38.7-80.0); PLATELET COUNT 199 x10e3/uL (140-360); RED BLOOD COUNT 2.77 x10e6/uL (4.3-5.7); RED CELL DISTRIBUTION WIDTH 13.3 % (11.7-14.4)
[2021-03-25 07:04] LABS: ANION GAP 14.6 mmol/L (8-16); CALCIUM 8.9 mg/dL (8.4-10.2); CREATININE, SERUM 1.09 mg/dL (0.72-1.25); POTASSIUM 3.6 mmol/L (3.5-5.1)
[2021-03-25 07:05] LABS: MAGNESIUM 1.7 MG/DL (1.3-2.1); PHOSPHORUS 3.3 MG/DL (2.3-4.7)
[2021-03-25] MEDS: INSULIN LISPRO 100 UNIT/1 ML 3ML VIAL SQ SCH ×4 (07:30→21:13)
[2021-03-25] MEDS: POTASSIUM CHLORIDE 10MEQ EA PO SCH ×2 (09:00→17:00)
[2021-03-25] MEDS: FERROUS SULFATE 325 MG TAB PO SCH ×2 (09:00→17:00)
[2021-03-25] MEDS: METOPROLOL SUCCINATE 25 MG TAB XL PO SCH (09:00)
[2021-03-25] MEDS: DICLOFENAC SOD 50 MG TAB PO SCH (09:00)
[2021-03-25] MEDS: ENOXAPARIN INJ 80 MG/0.8 ML SYR SC SCH ×2 (09:00→21:12)
[2021-03-25] MEDS: ISOSORBIDE MONONITRATE 30 MG TAB CR PO SCH (09:00)
[2021-03-25] MEDS: Vancomycin IV 1 GM in SODIUM CHLORIDE 0.9% 250ML 250 ML IV SCH ×2 (09:22→21:12)
[2021-03-25] MEDS ORDERED: SODIUM CHLORIDE 0.9% 250ML 250 ML ONE (21:02)
[2021-03-25] MEDS: ATORVASTATIN 40 MG TAB PO SCH (21:12)
[2021-03-26] VITALS (8 sets, daily range): BP systolic 107–126; BP diastolic 47–56
[2021-03-26] MEDS: ENTACAPONE 200 MG PO SCH ×5 (00:01→23:45)
[2021-03-26] MEDS: CARBIDOPA/LEVODOPA 25/100 TAB PO SCH ×5 (00:01→23:45)
[2021-03-26] MEDS: ROPINIROLE HCL 2 MG TAB PO SCH ×5 (00:01→23:45)
[2021-03-26] MEDS: PIPERACILLIN/TAZOBACTAM 3.375 GM in SODIUM CHLORIDE 0.9% 50ML 50 ML IV SCH ×3 (06:15→22:01)
[2021-03-26] MEDS: INSULIN LISPRO 100 UNIT/1 ML 3ML VIAL SQ SCH ×4 (07:30→21:00)
[2021-03-26] MEDS: POTASSIUM CHLORIDE 10MEQ EA PO SCH ×2 (09:15→16:52)
[2021-03-26] MEDS: METOPROLOL SUCCINATE 25 MG TAB XL PO SCH (09:15)
[2021-03-26] MEDS: FERROUS SULFATE 325 MG TAB PO SCH ×2 (09:15→16:51)
[2021-03-26] MEDS: ENOXAPARIN INJ 80 MG/0.8 ML SYR SC SCH ×2 (09:15→22:00)
[2021-03-26] MEDS: DICLOFENAC SOD 50 MG TAB PO SCH (09:15)
[2021-03-26] MEDS ORDERED: DEXAMETHASONE 4 MG TAB PO SCH (12:00)
[2021-03-26] MEDS: ATORVASTATIN 40 MG TAB PO SCH (22:00)
[2021-03-27] VITALS (8 sets, daily range): BP systolic 118–146; BP diastolic 53–66
[2021-03-27] MEDS: ENTACAPONE 200 MG PO SCH ×3 (06:00→17:52)
[2021-03-27] MEDS: CARBIDOPA/LEVODOPA 25/100 TAB PO SCH ×3 (06:00→17:52)
[2021-03-27] MEDS: ROPINIROLE HCL 2 MG TAB PO SCH ×3 (06:00→17:52)
[2021-03-27] MEDS: PIPERACILLIN/TAZOBACTAM 3.375 GM in SODIUM CHLORIDE 0.9% 50ML 50 ML IV SCH ×3 (06:38→21:48)
[2021-03-27 06:59] LABS: BASOPHILS % 0.3 % (0.0-1.0); EOSINOPHILS # (AUTO) 0.1 (0.0-0.4); EOSINOPHILS % 0.9 % (0.0-6.0); HEMATOCRIT 27.4 % (38.2-49.6); HEMOGLOBIN 9.5 g/dL (14.0-18.0); LYMPHOCYTES # (AUTO) 0.3 (1.0-3.2); LYMPHOCYTES % 4.7 % (18.0-39.1); MEAN CORPUSCULAR HEMOGLOBIN 32.2 pg (28-32); MEAN CORPUSCULAR HGB CONC 34.7 g/dL (31-35); MEAN CORPUSCULAR VOLUME 92.9 fL (81-99); MONOCYTES # (AUTO) 0.3 (0.2-0.8); MONOCYTES % 3.9 % (4.4-11.3); NEUTROPHILS # (AUTO) 5.9 (2.1-6.9); NEUTROPHILS % 89.9 % (38.7-80.0); PLATELET COUNT 226 x10e3/uL (140-360); RED BLOOD COUNT 2.95 x10e6/uL (4.3-5.7); RED CELL DISTRIBUTION WIDTH 13.1 % (11.7-14.4)
[2021-03-27 07:23] LABS: ANION GAP 15.7 mmol/L (8-16); CREATININE, SERUM 0.98 mg/dL (0.72-1.25); POTASSIUM 3.7 mmol/L (3.5-5.1)
[2021-03-27] MEDS: FERROUS SULFATE 325 MG TAB PO SCH ×2 (09:10→16:44)
[2021-03-27] MEDS: POTASSIUM CHLORIDE 10MEQ EA PO SCH ×2 (09:10→16:44)
[2021-03-27] MEDS: DICLOFENAC SOD 50 MG TAB PO SCH (09:11)
[2021-03-27] MEDS: METOPROLOL SUCCINATE 25 MG TAB XL PO SCH (09:11)
[2021-03-27] MEDS: ENOXAPARIN INJ 80 MG/0.8 ML SYR SC SCH ×2 (09:11→21:47)
[2021-03-27] MEDS: INSULIN LISPRO 100 UNIT/1 ML 3ML VIAL SQ SCH ×4 (09:42→21:55)
[2021-03-27] MEDS ORDERED: ACETAMINOPHEN/CODEINE 300MG - 30MG TAB PO PRN (10:30)
[2021-03-27] MEDS: CELECOXIB 100 MG CAP PO SCH ×2 (12:02→16:43)
[2021-03-27] MEDS ORDERED: INSULIN GLARGINE 100 UNITS/ML VIAL SQ SCH (21:00)
[2021-03-27] MEDS: ATORVASTATIN 40 MG TAB PO SCH (21:47)
[2021-03-28] VITALS: BP 123/62
[2021-03-28] MEDS: CARBIDOPA/LEVODOPA 25/100 TAB PO SCH ×4 (00:33→16:53)
[2021-03-28] MEDS: ENTACAPONE 200 MG PO SCH ×4 (00:33→16:53)
[2021-03-28] MEDS: ROPINIROLE HCL 2 MG TAB PO SCH ×4 (00:33→16:53)
[2021-03-28 04:00] VITALS: BP 106/54
[2021-03-28] MEDS: PIPERACILLIN/TAZOBACTAM 3.375 GM in SODIUM CHLORIDE 0.9% 50ML 50 ML IV SCH ×3 (06:37→21:15)
[2021-03-28 07:11] LABS: ANION GAP 12.6 mmol/L (8-16); CALCIUM 8.7 mg/dL (8.4-10.2); CREATININE, SERUM 1.12 mg/dL (0.72-1.25); POTASSIUM 3.6 mmol/L (3.5-5.1)
[2021-03-28 07:18] LABS: BASOPHILS % 0.3 % (0.0-1.0); EOSINOPHILS # (AUTO) 0.1 (0.0-0.4); EOSINOPHILS % 1.8 % (0.0-6.0); HEMATOCRIT 25.2 % (38.2-49.6); HEMOGLOBIN 8.2 g/dL (14.0-18.0); LYMPHOCYTES # (AUTO) 0.5 (1.0-3.2); LYMPHOCYTES % 7.3 % (18.0-39.1); MEAN CORPUSCULAR HEMOGLOBIN 31.5 pg (28-32); MEAN CORPUSCULAR HGB CONC 32.5 g/dL (31-35); MEAN CORPUSCULAR VOLUME 96.9 fL (81-99); MONOCYTES # (AUTO) 0.4 (0.2-0.8); MONOCYTES % 6.5 % (4.4-11.3); NEUTROPHILS # (AUTO) 5.7 (2.1-6.9); PLATELET COUNT 195 x10e3/uL (140-360); RED CELL DISTRIBUTION WIDTH 13.2 % (11.7-14.4)
[2021-03-28] MEDS: INSULIN LISPRO 100 UNIT/1 ML 3ML VIAL SQ SCH ×4 (07:30→21:00)
[2021-03-28] MEDS: CELECOXIB 100 MG CAP PO SCH ×2 (08:04→16:53)
[2021-03-28] MEDS: METOPROLOL SUCCINATE 25 MG TAB XL PO SCH (08:04)
[2021-03-28] MEDS: FERROUS SULFATE 325 MG TAB PO SCH ×2 (08:04→16:53)
[2021-03-28] MEDS: POTASSIUM CHLORIDE 10MEQ EA PO SCH ×2 (08:04→16:53)
[2021-03-28] MEDS: ENOXAPARIN INJ 80 MG/0.8 ML SYR SC SCH ×2 (08:06→21:11)
[2021-03-28 08:17] VITALS: BP 100/48
[2021-03-28 08:54] VITALS: BP 100/48
[2021-03-28] MEDS ORDERED: DIPHENHYDRAMINE HCL 25 MG CAP PO PRN (10:00)
[2021-03-28] MEDS ORDERED: ACETAMINOPHEN 325 MG TAB PO PRN (10:00)
[2021-03-28 10:36] LABS: THYROID STIMULATING HORMONE 0.738 uIU/mL (0.350-4.940)
[2021-03-28 11:45] VITALS: BP 102/63
[2021-03-28] MEDS ORDERED: SODIUM CHLORIDE 0.9% 250ML 250 ML ONE (11:47)
[2021-03-28] MEDS: IRON SUCROSE 100 MG in SODIUM CHLORIDE 0.9% 100 ML 100 ML IV SCH (11:51)
[2021-03-28 20:00] VITALS: BP 120/55
[2021-03-28] MEDS: INSULIN GLARGINE 100 UNITS/ML VIAL SQ SCH (21:00)
[2021-03-28] MEDS: ATORVASTATIN 40 MG TAB PO SCH (21:11)
[2021-03-29] VITALS (8 sets, daily range): BP systolic 104–150; BP diastolic 54–64
[2021-03-29] MEDS: ROPINIROLE HCL 2 MG TAB PO SCH ×3 (00:30→21:51)
[2021-03-29] MEDS: ENTACAPONE 200 MG PO SCH ×4 (00:30→17:54)
[2021-03-29] MEDS: CARBIDOPA/LEVODOPA 25/100 TAB PO SCH ×4 (00:31→17:53)
[2021-03-29] MEDS: PIPERACILLIN/TAZOBACTAM 3.375 GM in SODIUM CHLORIDE 0.9% 50ML 50 ML IV SCH (06:04)
[2021-03-29] MEDS: INSULIN LISPRO 100 UNIT/1 ML 3ML VIAL SQ SCH ×4 (07:30→21:00)
[2021-03-29] MEDS: METOPROLOL SUCCINATE 25 MG TAB XL PO SCH (09:00)
[2021-03-29] MEDS: FOLIC ACID 1 MG TAB PO SCH (09:27)
[2021-03-29] MEDS: CELECOXIB 100 MG CAP PO SCH ×2 (09:27→17:53)
[2021-03-29] MEDS: POTASSIUM CHLORIDE 10MEQ EA PO SCH ×2 (09:28→17:53)
[2021-03-29] MEDS: THIAMINE HCL 100 MG TAB PO SCH (09:28)
[2021-03-29] MEDS: CYANOCOBALAMIN INJ 1,000 MCG/ML VIAL IM SCH (09:29)
[2021-03-29] MEDS: IRON SUCROSE 100 MG in SODIUM CHLORIDE 0.9% 100 ML 100 ML IV SCH (12:06)
[2021-03-29] MEDS: ATORVASTATIN 40 MG TAB PO SCH (21:00)
[2021-03-29] MEDS: INSULIN GLARGINE 100 UNITS/ML VIAL SQ SCH (21:00)
[2021-03-29] MEDS: QUETIAPINE FUMARATE 25 MG TAB PO SCH (21:51)
[2021-03-30] VITALS (8 sets, daily range): BP systolic 94–152; BP diastolic 49–80
[2021-03-30] MEDS: INSULIN LISPRO 100 UNIT/1 ML 3ML VIAL SQ SCH ×4 (07:30→21:00)
[2021-03-30] MEDS: CARBIDOPA/LEVODOPA 25/100 TAB PO SCH ×5 (07:49→23:34)
[2021-03-30] MEDS: ENTACAPONE 200 MG PO SCH ×5 (07:49→23:34)
[2021-03-30] MEDS ORDERED: APIXABAN 5 MG TABLET PO SCH (09:00)
[2021-03-30] MEDS: CELECOXIB 100 MG CAP PO SCH (09:53)
[2021-03-30] MEDS: FOLIC ACID 1 MG TAB PO SCH (09:54)
[2021-03-30] MEDS: METOPROLOL SUCCINATE 25 MG TAB XL PO SCH (09:54)
[2021-03-30] MEDS: THIAMINE HCL 100 MG TAB PO SCH (09:54)
[2021-03-30] MEDS: POTASSIUM CHLORIDE 10MEQ EA PO SCH ×2 (09:54→17:00)
[2021-03-30] MEDS: CYANOCOBALAMIN INJ 1,000 MCG/ML VIAL IM SCH (10:09)
[2021-03-30] MEDS: IRON SUCROSE 100 MG in SODIUM CHLORIDE 0.9% 100 ML 100 ML IV SCH (13:01)
[2021-03-30 14:37] LABS: HEMATOCRIT 28.4 % (38.2-49.6); HEMOGLOBIN 9.3 g/dL (14.0-18.0)
[2021-03-30 15:05] LABS: BASOPHILS % 0.6 % (0.0-1.0); EOSINOPHILS # (AUTO) 0.1 (0.0-0.4); EOSINOPHILS % 1.6 % (0.0-6.0); LYMPHOCYTES # (AUTO) 0.5 (1.0-3.2); LYMPHOCYTES % 7.7 % (18.0-39.1); MEAN CORPUSCULAR HEMOGLOBIN 31.5 pg (28-32); MEAN CORPUSCULAR HGB CONC 32.5 g/dL (31-35); MEAN CORPUSCULAR VOLUME 96.9 fL (81-99); MONOCYTES # (AUTO) 0.4 (0.2-0.8); NEUTROPHILS # (AUTO) 5.9 (2.1-6.9); NEUTROPHILS % 83.8 % (38.7-80.0); PLATELET COUNT 251 x10e3/uL (140-360); RED BLOOD COUNT 2.92 x10e6/uL (4.3-5.7); RED CELL DISTRIBUTION WIDTH 13.2 % (11.7-14.4)
[2021-03-30] MEDS ORDERED: DEXTROSE 5%/0.45% SOD CHL 1,000 ML IV SCH (16:15)
[2021-03-30] MEDS: DEXTROSE 5%/0.45% SOD CHL 1,000 ML IV SCH (17:53)
[2021-03-30] MEDS: ROPINIROLE HCL 2 MG TAB PO SCH (21:00)
[2021-03-30] MEDS: ATORVASTATIN 40 MG TAB PO SCH (21:00)
[2021-03-30] MEDS: QUETIAPINE FUMARATE 25 MG TAB PO SCH (21:00)
[2021-03-30] MEDS: INSULIN GLARGINE 100 UNITS/ML VIAL SQ SCH (21:30)
[2021-03-31] VITALS (7 sets, daily range): BP systolic 106–133; BP diastolic 50–64
[2021-03-31] MEDS: CARBIDOPA/LEVODOPA 25/100 TAB PO SCH ×3 (06:00→17:54)
[2021-03-31] MEDS: ENTACAPONE 200 MG PO SCH ×3 (06:00→17:53)
[2021-03-31 06:10] LABS: BASOPHILS % 0.6 % (0.0-1.0); EOSINOPHILS # (AUTO) 0.2 (0.0-0.4); EOSINOPHILS % 4.6 % (0.0-6.0); HEMATOCRIT 26.5 % (38.2-49.6); HEMOGLOBIN 8.6 g/dL (14.0-18.0); LYMPHOCYTES # (AUTO) 0.8 (1.0-3.2); LYMPHOCYTES % 15.7 % (18.0-39.1); MEAN CORPUSCULAR HEMOGLOBIN 31.6 pg (28-32); MEAN CORPUSCULAR HGB CONC 32.5 g/dL (31-35); MEAN CORPUSCULAR VOLUME 97.4 fL (81-99); MONOCYTES # (AUTO) 0.6 (0.2-0.8); MONOCYTES % 11.4 % (4.4-11.3); NEUTROPHILS # (AUTO) 3.4 (2.1-6.9); NEUTROPHILS % 67.5 % (38.7-80.0); PLATELET COUNT 229 x10e3/uL (140-360); RED BLOOD COUNT 2.72 x10e6/uL (4.3-5.7); RED CELL DISTRIBUTION WIDTH 13.2 % (11.7-14.4)
[2021-03-31] MEDS: DEXTROSE 5%/0.45% SOD CHL 1,000 ML IV SCH (06:28)
[2021-03-31 06:41] LABS: ALBUMIN 2.9 g/dL (3.5-5.0); ALBUMIN/GLOBULIN RATIO 0.9 (0.8-2.0); ANION GAP 8.4 mmol/L (8-16); CALCIUM 8.4 mg/dL (8.4-10.2); CREATININE, SERUM 0.98 mg/dL (0.72-1.25); POTASSIUM 3.4 mmol/L (3.5-5.1)
[2021-03-31] MEDS ORDERED: POTASSIUM CHLORIDE 10MEQ EA PO ONE (08:45)
[2021-03-31] MEDS: POTASSIUM CHLORIDE 10MEQ EA PO SCH ×3 (09:00→17:00)
[2021-03-31] MEDS: FOLIC ACID 1 MG TAB PO SCH ×2 (09:00→09:07)
[2021-03-31] MEDS: METOPROLOL SUCCINATE 25 MG TAB XL PO SCH (09:00)
[2021-03-31] MEDS: THIAMINE HCL 100 MG TAB PO SCH ×2 (09:00→09:07)
[2021-03-31] MEDS: CYANOCOBALAMIN INJ 1,000 MCG/ML VIAL IM SCH (09:07)
[2021-03-31] MEDS: INSULIN LISPRO 100 UNIT/1 ML 3ML VIAL SQ SCH ×4 (09:21→21:00)
[2021-03-31 10:30] LABS: ABG HCO3 -2 mmol/L (22-26); ABG PCO2 34 mmHg (35-45); ABG PO2 63 mmHg (80-105); ABG TCO2 23
[2021-03-31] MEDS: ROPINIROLE HCL 2 MG TAB PO SCH (21:00)
[2021-03-31] MEDS: ATORVASTATIN 40 MG TAB PO SCH (21:00)
[2021-03-31] MEDS ORDERED: QUETIAPINE FUMARATE 25 MG TAB PO SCH (21:00)
[2021-04-01] VITALS (8 sets, daily range): BP systolic 115–149; BP diastolic 53–63
[2021-04-01] MEDS: ENTACAPONE 200 MG PO SCH ×5 (06:00→23:34)
[2021-04-01] MEDS: CARBIDOPA/LEVODOPA 25/100 TAB PO SCH ×5 (06:00→23:34)
[2021-04-01 06:27] LABS: BASOPHILS % 0.5 % (0.0-1.0); EOSINOPHILS # (AUTO) 0.2 (0.0-0.4); EOSINOPHILS % 2.4 % (0.0-6.0); HEMATOCRIT 29.5 % (38.2-49.6); HEMOGLOBIN 9.5 g/dL (14.0-18.0); LYMPHOCYTES # (AUTO) 0.7 (1.0-3.2); MEAN CORPUSCULAR HEMOGLOBIN 31.5 pg (28-32); MEAN CORPUSCULAR HGB CONC 32.2 g/dL (31-35); MEAN CORPUSCULAR VOLUME 97.7 fL (81-99); MONOCYTES # (AUTO) 0.6 (0.2-0.8); MONOCYTES % 8.5 % (4.4-11.3); NEUTROPHILS # (AUTO) 5.1 (2.1-6.9); NEUTROPHILS % 77.3 % (38.7-80.0); PLATELET COUNT 243 x10e3/uL (140-360); RED BLOOD COUNT 3.02 x10e6/uL (4.3-5.7); RED CELL DISTRIBUTION WIDTH 13.4 % (11.7-14.4)
[2021-04-01] MEDS: INSULIN LISPRO 100 UNIT/1 ML 3ML VIAL SQ SCH ×4 (07:30→21:00)
[2021-04-01] MEDS: THIAMINE HCL 100 MG TAB PO SCH (09:00)
[2021-04-01] MEDS: METOPROLOL SUCCINATE 25 MG TAB XL PO SCH (09:00)
[2021-04-01] MEDS: POTASSIUM CHLORIDE 10MEQ EA PO SCH ×2 (09:00→16:03)
[2021-04-01] MEDS: FOLIC ACID 1 MG TAB PO SCH (09:00)
[2021-04-01] MEDS: AMPICILLIN SOD/SULBACTAM 3GM 100 ML IV SCH ×2 (10:35→22:30)
[2021-04-01] MEDS: ROPINIROLE HCL 2 MG TAB PO SCH (21:30)
[2021-04-01] MEDS: ATORVASTATIN 40 MG TAB PO SCH (21:30)
[2021-04-02] VITALS (8 sets, daily range): BP systolic 123–136; BP diastolic 52–66
[2021-04-02] MEDS: ENTACAPONE 200 MG PO SCH ×3 (06:00→17:36)
[2021-04-02] MEDS: CARBIDOPA/LEVODOPA 25/100 TAB PO SCH ×3 (06:00→17:36)
[2021-04-02] MEDS: INSULIN LISPRO 100 UNIT/1 ML 3ML VIAL SQ SCH ×4 (07:30→20:30)
[2021-04-02] MEDS: THIAMINE HCL 100 MG TAB PO SCH (09:00)
[2021-04-02] MEDS: METOPROLOL SUCCINATE 25 MG TAB XL PO SCH (09:00)
[2021-04-02] MEDS: FOLIC ACID 1 MG TAB PO SCH (09:00)
[2021-04-02] MEDS: POTASSIUM CHLORIDE 10MEQ EA PO SCH ×2 (09:00→17:36)
[2021-04-02] MEDS: AMPICILLIN SOD/SULBACTAM 3GM 100 ML IV SCH ×2 (11:00→21:56)
[2021-04-02] MEDS: ATORVASTATIN 40 MG TAB PO SCH (20:41)
[2021-04-02] MEDS: QUETIAPINE FUMARATE 25 MG TAB PO PRN (20:41)
[2021-04-02] MEDS: ROPINIROLE HCL 2 MG TAB PO SCH (20:41)
[2021-04-02] MEDS ORDERED: SODIUM CHLORIDE 0.9% 250ML 250 ML ONE (20:57)
[2021-04-03] VITALS (9 sets, daily range): BP systolic 117–137; BP diastolic 49–68
[2021-04-03] MEDS: CARBIDOPA/LEVODOPA 25/100 TAB PO SCH ×4 (00:14→18:00)
[2021-04-03] MEDS: ENTACAPONE 200 MG PO SCH ×2 (00:14→06:00)
[2021-04-03 06:03] LABS: BASOPHILS % 0.6 % (0.0-1.0); EOSINOPHILS # (AUTO) 0.2 (0.0-0.4); EOSINOPHILS % 4.1 % (0.0-6.0); HEMOGLOBIN 9.2 g/dL (14.0-18.0); LYMPHOCYTES # (AUTO) 0.6 (1.0-3.2); MEAN CORPUSCULAR HEMOGLOBIN 31.2 pg (28-32); MEAN CORPUSCULAR HGB CONC 32.9 g/dL (31-35); MEAN CORPUSCULAR VOLUME 94.9 fL (81-99); MONOCYTES # (AUTO) 0.4 (0.2-0.8); MONOCYTES % 7.7 % (4.4-11.3); NEUTROPHILS % 75.2 % (38.7-80.0); PLATELET COUNT 246 x10e3/uL (140-360); RED BLOOD COUNT 2.95 x10e6/uL (4.3-5.7); RED CELL DISTRIBUTION WIDTH 13.5 % (11.7-14.4)
[2021-04-03 06:28] LABS: ANION GAP 10.3 mmol/L (8-16); CALCIUM 8.5 mg/dL (8.4-10.2); CREATININE, SERUM 0.82 mg/dL (0.72-1.25); POTASSIUM 3.3 mmol/L (3.5-5.1)
[2021-04-03] MEDS: INSULIN LISPRO 100 UNIT/1 ML 3ML VIAL SQ SCH ×4 (08:30→21:08)
[2021-04-03] MEDS: METOPROLOL SUCCINATE 25 MG TAB XL PO SCH (08:39)
[2021-04-03] MEDS: POTASSIUM CHLORIDE 10MEQ EA PO SCH ×2 (08:39→17:00)
[2021-04-03] MEDS: THIAMINE HCL 100 MG TAB PO SCH (08:39)
[2021-04-03] MEDS: FOLIC ACID 1 MG TAB PO SCH (08:39)
[2021-04-03] MEDS: AMPICILLIN SOD/SULBACTAM 3GM 100 ML IV SCH ×2 (10:25→20:56)
[2021-04-03] MEDS: APIXABAN 5 MG TABLET PO SCH (17:00)
[2021-04-03] MEDS: ATORVASTATIN 40 MG TAB PO SCH (20:55)
[2021-04-03] MEDS: ROPINIROLE HCL 2 MG TAB PO SCH (20:55)
[2021-04-03] MEDS: INSULIN GLARGINE 100 UNITS/ML VIAL SQ SCH (21:08)
[2021-04-04] VITALS (7 sets, daily range): BP systolic 126–146; BP diastolic 58–72
[2021-04-04] MEDS: CARBIDOPA/LEVODOPA 25/100 TAB PO SCH ×4 (01:27→17:50)
[2021-04-04 07:13] LABS: BASOPHILS % 0.8 % (0.0-1.0); EOSINOPHILS # (AUTO) 0.3 (0.0-0.4); EOSINOPHILS % 4.8 % (0.0-6.0); HEMATOCRIT 29.6 % (38.2-49.6); HEMOGLOBIN 9.8 g/dL (14.0-18.0); LYMPHOCYTES # (AUTO) 0.8 (1.0-3.2); LYMPHOCYTES % 14.7 % (18.0-39.1); MEAN CORPUSCULAR HEMOGLOBIN 31.1 pg (28-32); MEAN CORPUSCULAR HGB CONC 33.1 g/dL (31-35); MONOCYTES # (AUTO) 0.4 (0.2-0.8); MONOCYTES % 7.9 % (4.4-11.3); NEUTROPHILS # (AUTO) 3.7 (2.1-6.9); NEUTROPHILS % 71.4 % (38.7-80.0); PLATELET COUNT 271 x10e3/uL (140-360); RED BLOOD COUNT 3.15 x10e6/uL (4.3-5.7); RED CELL DISTRIBUTION WIDTH 13.5 % (11.7-14.4)
[2021-04-04] MEDS: INSULIN LISPRO 100 UNIT/1 ML 3ML VIAL SQ SCH ×4 (07:30→22:24)
[2021-04-04 07:34] LABS: ANION GAP 10.4 mmol/L (8-16); CALCIUM 8.8 mg/dL (8.4-10.2); CREATININE, SERUM 0.84 mg/dL (0.72-1.25); POTASSIUM 3.4 mmol/L (3.5-5.1)
[2021-04-04] MEDS: METOPROLOL SUCCINATE 25 MG TAB XL PO SCH (09:00)
[2021-04-04] MEDS: POTASSIUM CHLORIDE 10MEQ EA PO SCH ×2 (09:00→17:00)
[2021-04-04] MEDS: FOLIC ACID 1 MG TAB PO SCH (09:00)
[2021-04-04] MEDS: APIXABAN 5 MG TABLET PO SCH ×2 (09:00→17:00)
[2021-04-04] MEDS: THIAMINE HCL 100 MG TAB PO SCH (09:00)
[2021-04-04] MEDS: FUROSEMIDE 40 MG TAB PO SCH (09:00)
[2021-04-04] MEDS: AMPICILLIN SOD/SULBACTAM 3GM 100 ML IV SCH ×2 (09:48→21:05)
[2021-04-04] MEDS: ROPINIROLE HCL 2 MG TAB PO SCH (20:56)
[2021-04-04] MEDS: ATORVASTATIN 40 MG TAB PO SCH (20:56)
[2021-04-04] MEDS: QUETIAPINE FUMARATE 25 MG TAB PO PRN (21:05)
[2021-04-04] MEDS: INSULIN GLARGINE 100 UNITS/ML VIAL SQ SCH (22:21)
[2021-04-05] VITALS (10 sets, daily range): BP systolic 120–136; BP diastolic 58–70
[2021-04-05] MEDS: CARBIDOPA/LEVODOPA 25/100 TAB PO SCH ×4 (05:23→17:53)
[2021-04-05] MEDS: INSULIN LISPRO 100 UNIT/1 ML 3ML VIAL SQ SCH ×4 (07:30→21:30)
[2021-04-05] MEDS: METOPROLOL SUCCINATE 25 MG TAB XL PO SCH (08:10)
[2021-04-05] MEDS: APIXABAN 5 MG TABLET PO SCH ×2 (09:29→16:27)
[2021-04-05] MEDS: THIAMINE HCL 100 MG TAB PO SCH (09:29)
[2021-04-05] MEDS: FOLIC ACID 1 MG TAB PO SCH (09:29)
[2021-04-05] MEDS: FUROSEMIDE 40 MG TAB PO SCH (09:29)
[2021-04-05] MEDS: POTASSIUM CHLORIDE 10MEQ EA PO SCH ×2 (09:29→16:27)
[2021-04-05] MEDS: AMPICILLIN SOD/SULBACTAM 3GM 100 ML IV SCH ×2 (09:30→22:00)
[2021-04-05] MEDS: INSULIN GLARGINE 100 UNITS/ML VIAL SQ SCH (21:30)
[2021-04-05] MEDS: ROPINIROLE HCL 2 MG TAB PO SCH (21:50)
[2021-04-05] MEDS: ATORVASTATIN 40 MG TAB PO SCH (21:50)
[2021-04-06] VITALS: BP 107/55
[2021-04-06] MEDS: CARBIDOPA/LEVODOPA 25/100 TAB PO SCH ×2 (00:09→06:22)
[2021-04-06 04:00] VITALS: BP 125/59
[2021-04-06] MEDS: INSULIN LISPRO 100 UNIT/1 ML 3ML VIAL SQ SCH (07:30)
[2021-04-06 08:00] VITALS: BP 130/61
[2021-04-06 08:05] VITALS: BP 130/61
[2021-04-06] MEDS: FUROSEMIDE 40 MG TAB PO SCH (09:24)
[2021-04-06] MEDS: THIAMINE HCL 100 MG TAB PO SCH (09:24)
[2021-04-06] MEDS: FOLIC ACID 1 MG TAB PO SCH (09:24)
[2021-04-06] MEDS: APIXABAN 5 MG TABLET PO SCH (09:24)
[2021-04-06] MEDS: POTASSIUM CHLORIDE 10MEQ EA PO SCH (09:24)
[2021-04-06] MEDS: METOPROLOL SUCCINATE 25 MG TAB XL PO SCH (09:25)
== END 2021-04-06 11:50 | DRG 56 ==
LOC: ER 11:59 → ERHOLD 15:45 → MED/SURG 16:53
PROVIDERS: ADMIT Internal Medicine; ATTEND Internal Medicine
DX: G20 Parkinson's disease (principal); J69.0 Pneumonitis due to inhalation of food and vomit; L03.116 Cellulitis of left lower limb; I83.228 Varicose veins of left lower extremity with both ulcer of other part of lower extremity and inflammation; L97.821 Non-pressure chronic ulcer of other part of left lower leg limited to breakdown of skin; K92.2 Gastrointestinal hemorrhage, unspecified; F02.81 Dementia in other diseases classified elsewhere, unspecified severity, with behavioral disturbance; I50.22 Chronic systolic (congestive) heart failure; I11.0 Hypertensive heart disease with heart failure; I25.10 Atherosclerotic heart disease of native coronary artery without angina pectoris; I48.0 Paroxysmal atrial fibrillation; D64.9 Anemia, unspecified; D33.3 Benign neoplasm of cranial nerves; Z20.822 Contact with and (suspected) exposure to COVID-19; G93.89 Other specified disorders of brain; S43.085A Other dislocation of left shoulder joint, initial encounter; E66.01 Morbid (severe) obesity due to excess calories; R53.81 Other malaise; R26.9 Unspecified abnormalities of gait and mobility; Z68.38 Body mass index [BMI] 38.0-38.9, adult; Z95.5 Presence of coronary angioplasty implant and graft; Z86.718 Personal history of other venous thrombosis and embolism; Z79.01 Long term (current) use of anticoagulants; Z91.041 Radiographic dye allergy status; Z82.49 Family history of ischemic heart disease and other diseases of the circulatory system; Z83.3 Family history of diabetes mellitus; E78.5 Hyperlipidemia, unspecified; R13.10 Dysphagia, unspecified; G25.81 Restless legs syndrome; D50.9 Iron deficiency anemia, unspecified; E11.42 Type 2 diabetes mellitus with diabetic polyneuropathy
CPT/HCPCS: 36415; 36600; 70450; 70553; 71045; 72128; 72131; 72141; 74230; 80048; 80053; 80202; 82550; 82553; 82607; 82746; 82805; 82948; 83540; 83735; 83880; 84100; 84443; 84466; 84484; 85014; 85018; 85025; 85651; 86141; 87040; 93005; 93306; 93970; 94799; 96372; 97139; 99251; 99284; J0295; J1650; J1756; J1815; J2543; J3370; J3411; J3420; J7030; J7050; Q0162; U0002

== ENCOUNTER 2021-04-24 21:25 | Observation (INO) | payer MEDICARE ==
[~2021-04-24] VITALS: Ht 167.6 cm; Wt 87.7 kg
[2021-04-24] MEDS ORDERED: Morphine 4mg Syringe 4 MG/ML INJ IV STA (21:47)
[2021-04-24] MEDS ORDERED: ONDANSETRON HCL INJ 2MG/ML 2ML 2 MG/ML VIAL IV STA (21:47)
[2021-04-24 22:09] LABS: BASOPHILS % 0.5 % (0.0-1.0); EOSINOPHILS # (AUTO) 0.2 (0.0-0.4); HEMATOCRIT 31.9 % (38.2-49.6); HEMOGLOBIN 10.5 g/dL (14.0-18.0); LYMPHOCYTES % 17.9 % (18.0-39.1); MEAN CORPUSCULAR HEMOGLOBIN 31.2 pg (28-32); MEAN CORPUSCULAR HGB CONC 32.9 g/dL (31-35); MEAN CORPUSCULAR VOLUME 94.7 fL (81-99); MONOCYTES # (AUTO) 0.5 (0.2-0.8); MONOCYTES % 8.8 % (4.4-11.3); NEUTROPHILS # (AUTO) 3.9 (2.1-6.9); NEUTROPHILS % 69.6 % (38.7-80.0); PLATELET COUNT 167 x10e3/uL (140-360); RED BLOOD COUNT 3.37 x10e6/uL (4.3-5.7)
[2021-04-24 22:28] LABS: ALBUMIN 3.5 g/dL (3.5-5.0); ALBUMIN/GLOBULIN RATIO 1.1 (0.8-2.0); ANION GAP 14.6 mmol/L (8-16); CALCIUM 9.1 mg/dL (8.4-10.2); CREATININE, SERUM 1.21 mg/dL (0.72-1.25); POTASSIUM 3.6 mmol/L (3.5-5.1)
[2021-04-25] VITALS (7 sets, daily range): BP systolic 93–120; BP diastolic 49–73
[2021-04-25] MEDS ORDERED: ONDANSETRON HCL INJ 2MG/ML 2ML 2 MG/ML VIAL IV PRN (00:45)
[2021-04-25] MEDS ORDERED: PIPERACILLIN/TAZOBACTAM 3.375 GM in SODIUM CHLORIDE 0.9% 50ML 50 ML IV SCH (00:45)
[2021-04-25] MEDS ORDERED: Morphine 4mg Syringe 4 MG/ML INJ IV PRN ×2 (00:45→04:45)
[2021-04-25 01:21] LABS: CREATINE KINASE MB 1.4 ng/mL (0-5.0)
[2021-04-25] MEDS: SODIUM CHLORIDE 0.9% 1000ML 1,000 ML IV SCH ×2 (02:45→08:20)
[2021-04-25] MEDS ORDERED: Morphine 2mg Syringe 2 MG/ML SYR IV PRN (04:00)
[2021-04-25] MEDS: PIPERACILLIN/TAZOBACTAM 3.375 GM in SODIUM CHLORIDE 0.9% 50ML 50 ML IV SCH ×3 (08:19→21:11)
[2021-04-25] MEDS ORDERED: DEXTROSE 50% SYRINGE 50 ML IV PRN (08:30)
[2021-04-25] MEDS ORDERED: INSULIN GLARGINE 100 UNITS/ML VIAL SQ ONE (08:30)
[2021-04-25] MEDS ORDERED: HYDROCODONE/APAP 5MG-325MG TAB PO PRN (08:30)
[2021-04-25] MEDS: ENTACAPONE PO SCH ×4 (09:00→21:00)
[2021-04-25] MEDS: ISOSORBIDE MONONITRATE 30 MG TAB CR PO SCH (09:00)
[2021-04-25 09:32] LABS: INR 1.3; PROTHROMBIN TIME 17.1 seconds (11.9-14.5)
[2021-04-25 09:33] LABS: PARTIAL THROMBOPLASTIN TIME 41.7 seconds (23.8-35.5)
[2021-04-25] MEDS: CARBIDOPA/LEVODOPA 25/100 TAB PO SCH ×4 (09:55→21:11)
[2021-04-25] MEDS: ATORVASTATIN 40 MG TAB PO SCH (09:55)
[2021-04-25] MEDS: ROPINIROLE HCL 1 MG TAB PO SCH ×4 (09:55→21:11)
[2021-04-25] MEDS: INSULIN LISPRO 100 UNIT/1 ML 3ML VIAL SQ SCH ×3 (13:10→21:00)
[2021-04-25] MEDS: CELECOXIB 100 MG CAP PO SCH (16:08)
[2021-04-25] MEDS ORDERED: LIDOCAINE HCL 1% LOCAL INJ 20 ML VIAL ONE (17:37)
[2021-04-25 20:14] LABS: BODY FLUID COLOR RED; BODY FLUID TYPE SYNOVIAL
[2021-04-25 20:15] LABS: BODY FLUID APPEARANCE TURBID; WBC,BODY FLUID 875 cells/uL
[2021-04-25 20:16] LABS: RBC,BODY FLUID 2743000 cells/uL
[2021-04-25] MEDS: METOPROLOL SUCCINATE 25 MG TAB XL PO SCH (21:00)
[2021-04-25] MEDS: INSULIN GLARGINE 100 UNITS/ML VIAL SQ SCH (21:29)
[2021-04-25 22:00] LABS: EOSINOPHILS,BODY FLUID 6 %; LYMPHOCYTES,BODY FLUID 28 %; MONO/MACROPHG,BODY FLUID 6 %; NEUTROPHILS,BODY FLUID 60 %
[2021-04-26] VITALS (7 sets, daily range): BP systolic 90–104; BP diastolic 51–70
[2021-04-26] MEDS: PIPERACILLIN/TAZOBACTAM 3.375 GM in SODIUM CHLORIDE 0.9% 50ML 50 ML IV SCH ×3 (03:29→17:25)
[2021-04-26 05:33] LABS: BASOPHILS % 0.6 % (0.0-1.0); EOSINOPHILS # (AUTO) 0.3 (0.0-0.4); EOSINOPHILS % 8.3 % (0.0-6.0); HEMATOCRIT 27.1 % (38.2-49.6); HEMOGLOBIN 8.7 g/dL (14.0-18.0); LYMPHOCYTES # (AUTO) 0.6 (1.0-3.2); LYMPHOCYTES % 17.4 % (18.0-39.1); MEAN CORPUSCULAR HEMOGLOBIN 30.6 pg (28-32); MEAN CORPUSCULAR HGB CONC 32.1 g/dL (31-35); MEAN CORPUSCULAR VOLUME 95.4 fL (81-99); MONOCYTES # (AUTO) 0.3 (0.2-0.8); NEUTROPHILS # (AUTO) 2.4 (2.1-6.9); NEUTROPHILS % 65.4 % (38.7-80.0); PLATELET COUNT 133 x10e3/uL (140-360); RED BLOOD COUNT 2.84 x10e6/uL (4.3-5.7); RED CELL DISTRIBUTION WIDTH 12.9 % (11.7-14.4)
[2021-04-26 06:46] LABS: ALANINE AMINOTRANSFERASE < 6 IU/L (0-55); ALBUMIN 2.9 g/dL (3.5-5.0); ALBUMIN/GLOBULIN RATIO 1.1 (0.8-2.0); ALKALINE PHOSPHATASE 84 IU/L (40-150); ANION GAP 12.1 mmol/L (8-16); BLOOD UREA NITROGEN 11 mg/dL (7-26); BUN/CREATININE RATIO 10 (6-25); CALCIUM 8.4 mg/dL (8.4-10.2); CARBON DIOXIDE 26 mmol/L (22-29); CHLORIDE 106 mmol/L (98-107); CREATININE, SERUM 1.05 mg/dL (0.72-1.25); EST GLOMERULAR FILTRATION RATE 70 ML/MIN (60-); GLUCOSE 82 mg/dL (74-118); POTASSIUM 3.1 mmol/L (3.5-5.1); SODIUM 141 mmol/L (136-145)
[2021-04-26 07:24] LABS: GLUCOSE,BODY FLUID 50 mg/dL
[2021-04-26] MEDS: INSULIN LISPRO 100 UNIT/1 ML 3ML VIAL SQ SCH ×3 (07:30→16:30)
[2021-04-26] MEDS ORDERED: ELIQUIS5 MG PO (08:44)
[2021-04-26] MEDS ORDERED: LIDOCAINE 4% PATCH TP SCH (09:00)
[2021-04-26] MEDS ORDERED: POTASSIUM CHLORIDE 10MEQ EA PO ONE (09:30)
[2021-04-26] MEDS: CELECOXIB 100 MG CAP PO SCH ×2 (09:47→17:36)
[2021-04-26] MEDS: ATORVASTATIN 40 MG TAB PO SCH (09:48)
[2021-04-26] MEDS: ENTACAPONE PO SCH ×3 (09:48→17:36)
[2021-04-26] MEDS: ISOSORBIDE MONONITRATE 30 MG TAB CR PO SCH (09:48)
[2021-04-26] MEDS: CARBIDOPA/LEVODOPA 25/100 TAB PO SCH ×4 (09:49→20:35)
[2021-04-26] MEDS ORDERED: ROPINIROLE HCL 2 MG TAB PO SCH (10:00)
[2021-04-26] MEDS ORDERED: ONDANSETRON HCL 4 MG ORAL DISINTEGRATING TAB PO PRN (12:30)
[2021-04-26] MEDS: ROPINIROLE HCL 2 MG TAB PO SCH ×2 (17:24→17:37)
[2021-04-26] MEDS: METOPROLOL SUCCINATE 25 MG TAB XL PO SCH (20:27)
[2021-04-26] MEDS: INSULIN GLARGINE 100 UNITS/ML VIAL SQ SCH (20:35)
[2021-04-26] MEDS: ROPINIROLE HCL 1 MG TAB PO SCH (20:35)
== END 2021-04-26 21:02 ==
LOC: ER 21:31 → ERHOLD 04-25 02:28 → MED/SURG 04-25 03:52
PROVIDERS: ADMIT Internal Medicine; ATTEND Internal Medicine
DX: M24.412 Recurrent dislocation, left shoulder (principal); L03.114 Cellulitis of left upper limb; I11.0 Hypertensive heart disease with heart failure; E11.9 Type 2 diabetes mellitus without complications; G20 Parkinson's disease; Z95.5 Presence of coronary angioplasty implant and graft; F02.80 Dementia in other diseases classified elsewhere, unspecified severity, without behavioral disturbance, psychotic disturbance, mood disturbance, and anxiety; E66.01 Morbid (severe) obesity due to excess calories; I48.91 Unspecified atrial fibrillation; Z79.01 Long term (current) use of anticoagulants; I50.22 Chronic systolic (congestive) heart failure; Z91.041 Radiographic dye allergy status; Z20.822 Contact with and (suspected) exposure to COVID-19; Z68.31 Body mass index [BMI] 31.0-31.9, adult
CPT/HCPCS: 20610; 36415 ×3; 71045; 73202; 74470; 77012; 80053 ×2; 82550; 82553; 82945; 82948 ×2; 83605; 84484; 85025 ×2; 85610; 85651; 85730; 86141; 87040 ×2; 87070; 87205; 89051; 89060; 93005; 94799 ×2; 97116; 97162; 99284; G0378 ×2; J1815; J2001; J2270; J2405; J2543 ×2; J7030; U0002

== ENCOUNTER 2021-06-05 13:31 | Emergency (ER) | payer OTHER ==
[~2021-06-05] VITALS: Ht 167.6 cm; Wt 87.5 kg
== END 2021-06-05 18:01 ==
LOC: ER 13:38
DX: S00.33XA Contusion of nose, initial encounter (principal); M79.631 Pain in right forearm; W01.0XXA Fall on same level from slipping, tripping and stumbling without subsequent striking against object, initial encounter; Y92.008 Other place in unspecified non-institutional (private) residence as the place of occurrence of the external cause; E11.65 Type 2 diabetes mellitus with hyperglycemia; G20 Parkinson's disease; I10 Essential (primary) hypertension; I50.9 Heart failure, unspecified; D64.9 Anemia, unspecified; I25.2 Old myocardial infarction; Z95.5 Presence of coronary angioplasty implant and graft
CPT/HCPCS: 36415; 70450; 70486; 72125; 82948; 99283

== ENCOUNTER 2021-07-12 15:15 | Inpatient (IN) | payer OTHER ==
[~2021-07-12] VITALS: Ht 167.6 cm; Wt 89.9 kg
[2021-07-12 15:46] LABS: BASOPHILS % 0.2 % (0.0-1.0); EOSINOPHILS % 0.1 % (0.0-6.0); HEMATOCRIT 36.4 % (38.2-49.6); LYMPHOCYTES # (AUTO) 0.6 (1.0-3.2); LYMPHOCYTES % 4.4 % (18.0-39.1); MEAN CORPUSCULAR HEMOGLOBIN 31.5 pg (28-32); MEAN CORPUSCULAR VOLUME 95.5 fL (81-99); MONOCYTES # (AUTO) 0.7 (0.2-0.8); MONOCYTES % 5.8 % (4.4-11.3); NEUTROPHILS # (AUTO) 11.2 (2.1-6.9); NEUTROPHILS % 89.2 % (38.7-80.0); PLATELET COUNT 255 x10e3/uL (140-360); RED BLOOD COUNT 3.81 x10e6/uL (4.3-5.7); RED CELL DISTRIBUTION WIDTH 14.7 % (11.7-14.4)
[2021-07-12 16:03] LABS: ALBUMIN 3.3 g/dL (3.5-5.0); ALBUMIN/GLOBULIN RATIO 0.6 (0.8-2.0); ANION GAP 15.5 mmol/L (8-16); CALCIUM 9.4 mg/dL (8.4-10.2); CREATININE, SERUM 1.12 mg/dL (0.72-1.25); POTASSIUM 4.5 mmol/L (3.5-5.1)
[2021-07-12] MEDS ORDERED: ACETAMINOPHEN 325 MG TAB PO ONE (16:30)
[2021-07-12 17:32] LABS: CLARITY,URINE CLOUDY (CLEAR); COLOR,URINE YELLOW (YELLOW); LEUKOCYTE ESTERASE ,URINE 1+ (NEGATIVE); NITRITE,URINE POSITIVE (NEGATIVE)
[2021-07-12 17:33] LABS: KETONES,URINE NEGATIVE (NEGATIVE); PROTEIN,URINE DIPSTICK 1+ (NEGATIVE); URINE UROBILINOGEN 0.2 mg/dL (0.2 - 1)
[2021-07-12] MEDS ORDERED: SODIUM CHLORIDE 0.9% 1000ML 1,000 ML IV STA (17:40)
[2021-07-12] MEDS ORDERED: AZITHROMYCIN 250 MG TAB PO ONE (17:45)
[2021-07-12 17:50] LABS: WBC,URINE (MAN) >50 /HPF (0-5)
[2021-07-12 17:51] LABS: BACTERIA,URINE MANY /HPF; EPITHELIAL CELLS,URINE FEW /LPF
[2021-07-12 17:52] LABS: RENAL EPITHELIAL CELLS,URINE FEW; TRANSITIONAL EPI CELLS,URINE FEW
[2021-07-12] MEDS: SODIUM CHLORIDE 0.9% 1000ML 1,000 ML IV SCH (20:30)
[2021-07-12 20:49] LABS: ABG HCO3 25 mmol/L (22-26); ABG PCO2 33 mmHg (35-45); ABG PH 7.48 (7.35-7.45); ABG PO2 73 mmHg (80-105); ABG TCO2 26
[2021-07-12 22:06] VITALS: BP 134/50
[2021-07-13] VITALS: BP 134/50
[2021-07-13 01:57] LABS: CREATINE KINASE 123 IU/L (30-200)
[2021-07-13 04:00] VITALS: BP 136/61
[2021-07-13] MEDS: SODIUM CHLORIDE 0.9% 1000ML 1,000 ML IV SCH ×2 (04:30→15:14)
[2021-07-13 05:01] LABS: BASOPHILS % 0.3 % (0.0-1.0); HEMATOCRIT 30.5 % (38.2-49.6); LYMPHOCYTES # (AUTO) 0.4 (1.0-3.2); LYMPHOCYTES % 5.5 % (18.0-39.1); MEAN CORPUSCULAR HEMOGLOBIN 31.6 pg (28-32); MEAN CORPUSCULAR HGB CONC 32.8 g/dL (31-35); MEAN CORPUSCULAR VOLUME 96.5 fL (81-99); MONOCYTES # (AUTO) 0.5 (0.2-0.8); MONOCYTES % 6.7 % (4.4-11.3); NEUTROPHILS # (AUTO) 6.8 (2.1-6.9); NEUTROPHILS % 87.2 % (38.7-80.0); PLATELET COUNT 178 x10e3/uL (140-360); RED BLOOD COUNT 3.16 x10e6/uL (4.3-5.7); RED CELL DISTRIBUTION WIDTH 14.5 % (11.7-14.4)
[2021-07-13 05:34] LABS: ALBUMIN 2.7 g/dL (3.5-5.0); ALBUMIN/GLOBULIN RATIO 0.7 (0.8-2.0); ANION GAP 13.6 mmol/L (8-16); CALCIUM 8.2 mg/dL (8.4-10.2); CREATININE, SERUM 1.11 mg/dL (0.72-1.25); POTASSIUM 3.6 mmol/L (3.5-5.1)
[2021-07-13 05:52] LABS: CREATINE KINASE 110 IU/L (30-200)
[2021-07-13] MEDS: ACETAMINOPHEN 325 MG TAB PO SCH ×4 (06:44→17:06)
[2021-07-13 08:00] VITALS: BP 130/65
[2021-07-13] MEDS ORDERED: DEXTROSE 50% SYRINGE 50 ML IV PRN (08:30)
[2021-07-13] MEDS: POTASSIUM CHLORIDE 10MEQ EA PO SCH ×2 (09:00→17:00)
[2021-07-13] MEDS: ENTACAPONE PO SCH ×4 (09:00→21:55)
[2021-07-13] MEDS: ROPINIROLE HCL 1 MG TAB PO SCH ×4 (09:00→21:55)
[2021-07-13] MEDS: ISOSORBIDE MONONITRATE 30 MG TAB CR PO SCH (09:00)
[2021-07-13] MEDS: APIXAB 2.5 MG TABLET PO SCH ×2 (09:00→17:00)
[2021-07-13] MEDS: FERROUS SULFATE 325 MG TAB PO SCH ×2 (09:00→17:00)
[2021-07-13] MEDS: CARBIDOPA/LEVODOPA 25/100 TAB PO SCH ×4 (09:00→21:55)
[2021-07-13 11:51] VITALS: BP 123/59
[2021-07-13] MEDS ORDERED: Vancomycin IV 1 GM in SODIUM CHLORIDE 0.9% 250ML 250 ML IV ONE ×2 (13:30→18:40)
[2021-07-13 13:34] LABS: CREATINE KINASE 88 IU/L (30-200)
[2021-07-13 15:42] VITALS: BP 100/56
[2021-07-13] MEDS: INSULIN LISPRO 100 UNIT/1 ML 3ML VIAL SQ SCH ×4 (16:30→21:00)
[2021-07-13 20:00] VITALS: BP 91/56
[2021-07-13] MEDS: INSULIN GLARGINE 100 UNITS/ML VIAL SQ SCH (21:00)
[2021-07-13] MEDS ORDERED: [UNRECOGNIZED DRUG - OTHER] SQ SCH (21:00)
[2021-07-13] MEDS ORDERED: INSULIN GLARGINE HUM REC ANLOG 50 UNIT SQ SCH (21:00)
[2021-07-13] MEDS: METOPROLOL SUCCINATE 25 MG TAB XL PO SCH (21:00)
[2021-07-13] MEDS: ATORVASTATIN 40 MG TAB PO SCH (22:49)
[2021-07-14] VITALS (8 sets, daily range): BP systolic 99–123; BP diastolic 54–62
[2021-07-14] MEDS: ACETAMINOPHEN 325 MG TAB PO SCH ×4 (00:49→17:30)
[2021-07-14] MEDS: SODIUM CHLORIDE 0.9% 1000ML 1,000 ML IV SCH ×2 (04:34→17:30)
[2021-07-14 05:23] LABS: BASOPHILS % 0.4 % (0.0-1.0); EOSINOPHILS % 0.6 % (0.0-6.0); HEMATOCRIT 27.5 % (38.2-49.6); HEMOGLOBIN 9.1 g/dL (14.0-18.0); LYMPHOCYTES # (AUTO) 0.4 (1.0-3.2); LYMPHOCYTES % 6.9 % (18.0-39.1); MEAN CORPUSCULAR HEMOGLOBIN 31.5 pg (28-32); MEAN CORPUSCULAR HGB CONC 33.1 g/dL (31-35); MEAN CORPUSCULAR VOLUME 95.2 fL (81-99); MONOCYTES # (AUTO) 0.4 (0.2-0.8); MONOCYTES % 8.4 % (4.4-11.3); NEUTROPHILS # (AUTO) 4.2 (2.1-6.9); NEUTROPHILS % 83.3 % (38.7-80.0); PLATELET COUNT 159 x10e3/uL (140-360); RED BLOOD COUNT 2.89 x10e6/uL (4.3-5.7); RED CELL DISTRIBUTION WIDTH 14.5 % (11.7-14.4)
[2021-07-14 05:45] LABS: ALBUMIN 2.4 g/dL (3.5-5.0); ALBUMIN/GLOBULIN RATIO 0.7 (0.8-2.0); ANION GAP 13.9 mmol/L (8-16); CALCIUM 7.5 mg/dL (8.4-10.2); CREATININE, SERUM 0.89 mg/dL (0.72-1.25); POTASSIUM 3.9 mmol/L (3.5-5.1)
[2021-07-14] MEDS: INSULIN LISPRO 100 UNIT/1 ML 3ML VIAL SQ SCH ×6 (08:00→21:00)
[2021-07-14] MEDS: POTASSIUM CHLORIDE 10MEQ EA PO SCH ×2 (08:10→17:30)
[2021-07-14] MEDS: FERROUS SULFATE 325 MG TAB PO SCH ×2 (08:10→17:30)
[2021-07-14] MEDS: ISOSORBIDE MONONITRATE 30 MG TAB CR PO SCH (08:10)
[2021-07-14] MEDS: CARBIDOPA/LEVODOPA 25/100 TAB PO SCH ×4 (08:10→21:00)
[2021-07-14] MEDS: APIXAB 2.5 MG TABLET PO SCH ×2 (08:10→17:30)
[2021-07-14] MEDS: ROPINIROLE HCL 2 MG TAB PO SCH ×4 (08:10→21:00)
[2021-07-14] MEDS: ENTACAPONE PO SCH ×5 (09:00→21:00)
[2021-07-14] MEDS: INSULIN GLARGINE 100 UNITS/ML VIAL SQ SCH (21:00)
[2021-07-14] MEDS: ATORVASTATIN 40 MG TAB PO SCH (21:00)
[2021-07-14] MEDS: METOPROLOL SUCCINATE 25 MG TAB XL PO SCH (21:00)
[2021-07-15] VITALS (9 sets, daily range): BP systolic 106–144; BP diastolic 58–83
[2021-07-15] MEDS: ACETAMINOPHEN 325 MG TAB PO SCH ×2 (06:00)
[2021-07-15] MEDS: SODIUM CHLORIDE 0.9% 1000ML 1,000 ML IV SCH (07:14)
[2021-07-15] MEDS: INSULIN LISPRO 100 UNIT/1 ML 3ML VIAL SQ SCH ×7 (07:30→20:50)
[2021-07-15] MEDS: FERROUS SULFATE 325 MG TAB PO SCH ×2 (09:13→17:40)
[2021-07-15] MEDS: APIXAB 2.5 MG TABLET PO SCH ×2 (09:13→17:40)
[2021-07-15] MEDS: ENTACAPONE PO SCH ×4 (09:13→20:48)
[2021-07-15] MEDS: POTASSIUM CHLORIDE 10MEQ EA PO SCH ×2 (09:14→17:40)
[2021-07-15] MEDS: CARBIDOPA/LEVODOPA 25/100 TAB PO SCH ×4 (09:14→20:48)
[2021-07-15] MEDS: ROPINIROLE HCL 2 MG TAB PO SCH ×4 (09:14→20:48)
[2021-07-15] MEDS: ISOSORBIDE MONONITRATE 30 MG TAB CR PO SCH (09:14)
[2021-07-15] MEDS ORDERED: ACETAMINOPHEN 325 MG TAB PO PRN (12:30)
[2021-07-15] MEDS: ATORVASTATIN 40 MG TAB PO SCH (20:48)
[2021-07-15] MEDS: METOPROLOL SUCCINATE 25 MG TAB XL PO SCH (20:49)
[2021-07-15] MEDS: INSULIN GLARGINE 100 UNITS/ML VIAL SQ SCH (20:50)
[2021-07-16] VITALS (8 sets, daily range): BP systolic 88–141; BP diastolic 53–73
[2021-07-16] MEDS: SODIUM CHLORIDE 0.9% 1000ML 1,000 ML IV SCH ×3 (02:30→23:14)
[2021-07-16] MEDS: INSULIN LISPRO 100 UNIT/1 ML 3ML VIAL SQ SCH ×7 (07:30→21:00)
[2021-07-16] MEDS: APIXAB 2.5 MG TABLET PO SCH ×2 (08:57→17:16)
[2021-07-16] MEDS: CARBIDOPA/LEVODOPA 25/100 TAB PO SCH ×4 (08:57→22:16)
[2021-07-16] MEDS: ISOSORBIDE MONONITRATE 30 MG TAB CR PO SCH (08:57)
[2021-07-16] MEDS: ROPINIROLE HCL 2 MG TAB PO SCH ×4 (08:57→22:16)
[2021-07-16] MEDS: ENTACAPONE PO SCH ×4 (08:57→22:16)
[2021-07-16] MEDS: FERROUS SULFATE 325 MG TAB PO SCH ×2 (08:57→17:16)
[2021-07-16] MEDS: POTASSIUM CHLORIDE 10MEQ EA PO SCH ×2 (08:58→17:16)
[2021-07-16] MEDS: INSULIN GLARGINE 100 UNITS/ML VIAL SQ SCH (21:00)
[2021-07-16] MEDS: METOPROLOL SUCCINATE 25 MG TAB XL PO SCH (22:16)
[2021-07-16] MEDS: ATORVASTATIN 40 MG TAB PO SCH (22:16)
[2021-07-17] VITALS (8 sets, daily range): BP systolic 107–143; BP diastolic 59–66
[2021-07-17] MEDS: INSULIN LISPRO 100 UNIT/1 ML 3ML VIAL SQ SCH ×7 (07:30→21:00)
[2021-07-17] MEDS: CARBIDOPA/LEVODOPA 25/100 TAB PO SCH ×4 (09:33→22:31)
[2021-07-17] MEDS: FERROUS SULFATE 325 MG TAB PO SCH ×2 (09:33→17:16)
[2021-07-17] MEDS: ISOSORBIDE MONONITRATE 30 MG TAB CR PO SCH (09:33)
[2021-07-17] MEDS: ROPINIROLE HCL 2 MG TAB PO SCH ×4 (09:33→22:31)
[2021-07-17] MEDS: ENTACAPONE PO SCH ×4 (09:33→22:31)
[2021-07-17] MEDS: APIXAB 2.5 MG TABLET PO SCH ×2 (09:33→17:16)
[2021-07-17] MEDS: POTASSIUM CHLORIDE 10MEQ EA PO SCH ×2 (09:34→17:16)
[2021-07-17] MEDS: SODIUM CHLORIDE 0.9% 1000ML 1,000 ML IV SCH (12:42)
[2021-07-17] MEDS: METOPROLOL SUCCINATE 25 MG TAB XL PO SCH (21:00)
[2021-07-17] MEDS: INSULIN GLARGINE 100 UNITS/ML VIAL SQ SCH (21:00)
[2021-07-17] MEDS: ATORVASTATIN 40 MG TAB PO SCH (22:31)
[2021-07-18] VITALS (7 sets, daily range): BP systolic 116–141; BP diastolic 63–74
[2021-07-18] MEDS: SODIUM CHLORIDE 0.9% 1000ML 1,000 ML IV SCH ×2 (04:52→17:29)
[2021-07-18 05:52] LABS: BASOPHILS % 0.4 % (0.0-1.0); EOSINOPHILS # (AUTO) 0.1 (0.0-0.4); EOSINOPHILS % 1.9 % (0.0-6.0); HEMATOCRIT 28.4 % (38.2-49.6); HEMOGLOBIN 9.4 g/dL (14.0-18.0); LYMPHOCYTES # (AUTO) 0.8 (1.0-3.2); LYMPHOCYTES % 15.7 % (18.0-39.1); MEAN CORPUSCULAR HEMOGLOBIN 31.5 pg (28-32); MEAN CORPUSCULAR HGB CONC 33.1 g/dL (31-35); MEAN CORPUSCULAR VOLUME 95.3 fL (81-99); MONOCYTES # (AUTO) 0.4 (0.2-0.8); MONOCYTES % 7.5 % (4.4-11.3); NEUTROPHILS # (AUTO) 3.5 (2.1-6.9); NEUTROPHILS % 73.9 % (38.7-80.0); PLATELET COUNT 248 x10e3/uL (140-360); RED BLOOD COUNT 2.98 x10e6/uL (4.3-5.7); RED CELL DISTRIBUTION WIDTH 14.1 % (11.7-14.4)
[2021-07-18 06:14] LABS: ANION GAP 13.8 mmol/L (8-16); CALCIUM 7.9 mg/dL (8.4-10.2); CREATININE, SERUM 0.76 mg/dL (0.72-1.25); POTASSIUM 3.8 mmol/L (3.5-5.1)
[2021-07-18] MEDS: INSULIN LISPRO 100 UNIT/1 ML 3ML VIAL SQ SCH ×7 (07:30→21:00)
[2021-07-18] MEDS: ENTACAPONE PO SCH ×5 (09:00→21:00)
[2021-07-18] MEDS: APIXAB 2.5 MG TABLET PO SCH ×2 (10:17→17:30)
[2021-07-18] MEDS: FERROUS SULFATE 325 MG TAB PO SCH ×2 (10:17→17:30)
[2021-07-18] MEDS: ISOSORBIDE MONONITRATE 30 MG TAB CR PO SCH (10:18)
[2021-07-18] MEDS: CARBIDOPA/LEVODOPA 25/100 TAB PO SCH ×4 (10:19→21:00)
[2021-07-18] MEDS: ROPINIROLE HCL 2 MG TAB PO SCH ×4 (10:19→21:00)
[2021-07-18] MEDS: POTASSIUM CHLORIDE 10MEQ EA PO SCH ×2 (10:19→17:30)
[2021-07-18] MEDS: INSULIN GLARGINE 100 UNITS/ML VIAL SQ SCH (21:00)
[2021-07-18] MEDS: METOPROLOL SUCCINATE 25 MG TAB XL PO SCH (21:00)
[2021-07-18] MEDS: ATORVASTATIN 40 MG TAB PO SCH (21:00)
[2021-07-19] VITALS (7 sets, daily range): BP systolic 116–151; BP diastolic 65–74
[2021-07-19] MEDS: INSULIN LISPRO 100 UNIT/1 ML 3ML VIAL SQ SCH ×7 (07:30→20:21)
[2021-07-19] MEDS: ENTACAPONE PO SCH ×4 (09:50→20:34)
[2021-07-19] MEDS: FERROUS SULFATE 325 MG TAB PO SCH ×2 (09:50→17:50)
[2021-07-19] MEDS: POTASSIUM CHLORIDE 10MEQ EA PO SCH ×2 (09:50→17:50)
[2021-07-19] MEDS: CARBIDOPA/LEVODOPA 25/100 TAB PO SCH ×4 (09:50→20:34)
[2021-07-19] MEDS: APIXAB 2.5 MG TABLET PO SCH ×2 (09:50→17:50)
[2021-07-19] MEDS: ROPINIROLE HCL 2 MG TAB PO SCH ×4 (09:50→20:34)
[2021-07-19] MEDS: ISOSORBIDE MONONITRATE 30 MG TAB CR PO SCH (09:50)
[2021-07-19] MEDS: SODIUM CHLORIDE 0.9% 1000ML 1,000 ML IV SCH ×2 (09:57→17:54)
[2021-07-19] MEDS: ATORVASTATIN 40 MG TAB PO SCH (20:34)
[2021-07-19] MEDS: METOPROLOL SUCCINATE 25 MG TAB XL PO SCH (20:34)
[2021-07-19] MEDS: INSULIN GLARGINE 100 UNITS/ML VIAL SQ SCH (20:35)
[2021-07-20] VITALS: BP 137/70
[2021-07-20 04:00] VITALS: BP 146/80
[2021-07-20] MEDS: SODIUM CHLORIDE 0.9% 1000ML 1,000 ML IV SCH (04:45)
[2021-07-20 07:46] VITALS: BP 146/80
[2021-07-20 08:02] VITALS: BP 136/73
[2021-07-20] MEDS: INSULIN LISPRO 100 UNIT/1 ML 3ML VIAL SQ SCH ×2 (08:10→12:10)
[2021-07-20] MEDS ORDERED: TAMSULOSIN HCL 0.4 MG CAP PO SCH ×2 (09:00→10:00)
[2021-07-20] MEDS ORDERED: NITROFURANTOIN MACROCRYSTALS 100 MG CAP PO SCH (09:00)
[2021-07-20] MEDS: POTASSIUM CHLORIDE 10MEQ EA PO SCH (09:26)
[2021-07-20] MEDS: FERROUS SULFATE 325 MG TAB PO SCH (09:26)
[2021-07-20] MEDS: ENTACAPONE PO SCH ×2 (09:26→12:13)
[2021-07-20] MEDS: APIXAB 2.5 MG TABLET PO SCH (09:26)
[2021-07-20] MEDS: ISOSORBIDE MONONITRATE 30 MG TAB CR PO SCH (09:26)
[2021-07-20] MEDS: CARBIDOPA/LEVODOPA 25/100 TAB PO SCH ×2 (09:27→12:13)
[2021-07-20] MEDS: ROPINIROLE HCL 2 MG TAB PO SCH ×2 (09:27→12:13)
[2021-07-20 11:49] VITALS: BP 119/90
== END 2021-07-20 14:30 | disposition hospice, inpatient (51) | DRG 871 ==
LOC: ER 15:19 → ERHOLD 20:37 → MED/SURG2 22:40 → OBSVTOIN 07-13 08:28
PROVIDERS: ADMIT Internal Medicine; ATTEND Internal Medicine
DX: A41.51 Sepsis due to Escherichia coli [E. coli] (principal); G92.8 Other toxic encephalopathy; N39.0 Urinary tract infection, site not specified; Z16.12 Extended spectrum beta lactamase (ESBL) resistance; I50.22 Chronic systolic (congestive) heart failure; F05 Delirium due to known physiological condition; M25.08 Hemarthrosis, other specified site; R33.8 Other retention of urine; G20 Parkinson's disease; W01.10XA Fall on same level from slipping, tripping and stumbling with subsequent striking against unspecified object, initial encounter; Z91.81 History of falling; I48.91 Unspecified atrial fibrillation; Z79.01 Long term (current) use of anticoagulants; E66.01 Morbid (severe) obesity due to excess calories; Z68.32 Body mass index [BMI] 32.0-32.9, adult; M75.102 Unspecified rotator cuff tear or rupture of left shoulder, not specified as traumatic; I11.0 Hypertensive heart disease with heart failure; G30.9 Alzheimer's disease, unspecified; F02.80 Dementia in other diseases classified elsewhere, unspecified severity, without behavioral disturbance, psychotic disturbance, mood disturbance, and anxiety; I25.10 Atherosclerotic heart disease of native coronary artery without angina pectoris; E11.9 Type 2 diabetes mellitus without complications; N40.1 Benign prostatic hyperplasia with lower urinary tract symptoms; R53.81 Other malaise; S20.219D Contusion of unspecified front wall of thorax, subsequent encounter; M19.012 Primary osteoarthritis, left shoulder; M19.011 Primary osteoarthritis, right shoulder; Z95.5 Presence of coronary angioplasty implant and graft; Z20.822 Contact with and (suspected) exposure to COVID-19; R29.6 Repeated falls
CPT/HCPCS: 36415; 36600; 70450; 71045; 71250; 72125; 80048; 80053; 81001; 82550; 82553; 82805; 82948; 83605; 84484; 85025; 87040; 87086; 87186; 93005; 93306; 94799; 96361; 97139; 99251; 99284; G0378; J0692; J2185; J3370; J7030; J7050; U0002

== ENCOUNTER → 2021-10-27 | Outpatient (CLI) | payer MEDICARE ==
[~2021-10-27] MED LIST changes: +GADOBENATE DIMEGLUMINE 0 ML IV ONE; +MIDAZOLAM HCL 2 MG/2 ML VIAL ONE
[2021-10-27 10:32] LABS: CREATININE, SERUM 0.78 mg/dL (0.72-1.25)
== END ==
LOC: MRI 09:03
PROVIDERS: ATTEND Psychiatry & Neurology Neurology
DX: G20 Parkinson's disease (principal); D33.3 Benign neoplasm of cranial nerves; R93.0 Abnormal findings on diagnostic imaging of skull and head, not elsewhere classified; R26.89 Other abnormalities of gait and mobility; M50.30 Other cervical disc degeneration, unspecified cervical region
CPT/HCPCS: 36415; 82565; 84520; J2250; G0378

== ENCOUNTER 2021-11-15 09:55 | Emergency (ER) | payer MEDICARE ==
[~2021-11-15] VITALS: Ht 167.6 cm; Wt 89.8 kg
[~2021-11-15 09:55] MED LIST changes: -GADOBENATE DIMEGLUMINE 0 ML IV ONE; -MIDAZOLAM HCL 2 MG/2 ML VIAL ONE
[2021-11-15] MEDS ORDERED: KETOROLAC TROMETHAMINE 30 MG/ML VIAL IM STA (10:16)
[2021-11-15 12:45] VITALS: BP 112/60
== END 2021-11-15 12:59 ==
LOC: ER 10:06
DX: M54.9 Dorsalgia, unspecified (principal); G20 Parkinson's disease; G89.29 Other chronic pain; E11.9 Type 2 diabetes mellitus without complications; I50.9 Heart failure, unspecified; I48.91 Unspecified atrial fibrillation; I25.10 Atherosclerotic heart disease of native coronary artery without angina pectoris; K21.9 Gastro-esophageal reflux disease without esophagitis; Z86.718 Personal history of other venous thrombosis and embolism; Z95.5 Presence of coronary angioplasty implant and graft
CPT/HCPCS: 72100; 99283; J1885

== ENCOUNTER → 2021-11-17 | Outpatient (CLI) | payer MEDICARE ==
[2021-11-17 11:02] LABS: BASOPHILS % 0.4 % (0.0-1.0); EOSINOPHILS # (AUTO) 0.2 (0.0-0.4); EOSINOPHILS % 3.1 % (0.0-6.0); HEMATOCRIT 29.1 % (38.2-49.6); HEMOGLOBIN 10.2 g/dL (14.0-18.0); LYMPHOCYTES # (AUTO) 0.9 (1.0-3.2); LYMPHOCYTES % 15.5 % (18.0-39.1); MEAN CORPUSCULAR HEMOGLOBIN 32.2 pg (28-32); MEAN CORPUSCULAR HGB CONC 35.1 g/dL (31-35); MEAN CORPUSCULAR VOLUME 91.8 fL (81-99); MONOCYTES # (AUTO) 0.3 (0.2-0.8); MONOCYTES % 5.8 % (4.4-11.3); NEUTROPHILS # (AUTO) 4.2 (2.1-6.9); NEUTROPHILS % 74.8 % (38.7-80.0); PLATELET COUNT 228 x10e3/uL (140-360); RED BLOOD COUNT 3.17 x10e6/uL (4.3-5.7); RED CELL DISTRIBUTION WIDTH 14.7 % (11.7-14.4)
[2021-11-17 11:26] LABS: ANION GAP 13.2 mmol/L (8-16); CALCIUM 8.5 mg/dL (8.4-10.2); CREATININE, SERUM 0.92 mg/dL (0.72-1.25); POTASSIUM 4.2 mmol/L (3.5-5.1)
== END ==
LOC: MRI 09:57
PROVIDERS: ATTEND Psychiatry & Neurology Neurology
DX: G20 Parkinson's disease (principal); D33.3 Benign neoplasm of cranial nerves; R93.0 Abnormal findings on diagnostic imaging of skull and head, not elsewhere classified
CPT/HCPCS: 36415; 70553; 72156; 80048; 82948; 85025

== ENCOUNTER 2021-11-29 06:15 | Inpatient (IN) | payer MEDICARE ==
[~2021-11-29] VITALS: Ht 167.6 cm; Wt 93.9 kg
[2021-11-29] VITALS (13 sets, daily range): BP systolic 103–139; BP diastolic 46–63
[2021-11-29] MEDS ORDERED: SODIUM CHLORIDE 0.9% 1000ML 1,000 ML IV STA (06:20)
[2021-11-29 06:51] LABS: BASOPHILS % 0.3 % (0.0-1.0); EOSINOPHILS # (AUTO) 0.1 (0.0-0.4); EOSINOPHILS % 1.5 % (0.0-6.0); HEMATOCRIT 27.6 % (38.2-49.6); HEMOGLOBIN 9.2 g/dL (14.0-18.0); LYMPHOCYTES # (AUTO) 0.5 (1.0-3.2); LYMPHOCYTES % 7.3 % (18.0-39.1); MEAN CORPUSCULAR HEMOGLOBIN 31.4 pg (28-32); MEAN CORPUSCULAR HGB CONC 33.3 g/dL (31-35); MEAN CORPUSCULAR VOLUME 94.2 fL (81-99); MONOCYTES # (AUTO) 0.6 (0.2-0.8); MONOCYTES % 7.5 % (4.4-11.3); NEUTROPHILS # (AUTO) 6.2 (2.1-6.9); NEUTROPHILS % 83.1 % (38.7-80.0); PLATELET COUNT 208 x10e3/uL (140-360); RED BLOOD COUNT 2.93 x10e6/uL (4.3-5.7); RED CELL DISTRIBUTION WIDTH 13.7 % (11.7-14.4)
[2021-11-29 07:09] LABS: ALANINE AMINOTRANSFERASE 12 IU/L (0-55); ALBUMIN 3.1 g/dL (3.5-5.0); ALBUMIN/GLOBULIN RATIO 0.9 (0.8-2.0); ALKALINE PHOSPHATASE 137 IU/L (40-150); ANION GAP 16.9 mmol/L (8-16); BLOOD UREA NITROGEN 36 mg/dL (7-26); BUN/CREATININE RATIO 32 (6-25); CALCIUM 8.4 mg/dL (8.4-10.2); CARBON DIOXIDE 23 mmol/L (22-29); CHLORIDE 105 mmol/L (98-107); CREATINE KINASE 75 IU/L (30-200); CREATININE, SERUM 1.11 mg/dL (0.72-1.25); GLUCOSE 193 mg/dL (74-118); POTASSIUM 3.9 mmol/L (3.5-5.1); SODIUM 141 mmol/L (136-145)
[2021-11-29] MEDS ORDERED: SODIUM CHLORIDE FLUSH 10 ML SYR INJ PRN (07:45)
[2021-11-29] MEDS ORDERED: ONDANSETRON HCL INJ 2MG/ML 2ML 2 MG/ML VIAL IV PRN (07:45)
[2021-11-29] MEDS ORDERED: Morphine 4mg INJECTION 4 MG/ML INJ IV PRN ×2 (07:45→23:45)
[2021-11-29 15:17] LABS: CREATINE KINASE 66 IU/L (30-200)
[2021-11-29] MEDS ORDERED: DEXTROSE 50% SYRINGE 50 ML IV PRN (18:00)
[2021-11-29] MEDS: INSULIN REGULAR, HUMAN 100 UNIT/1 ML SQ SCH (20:39)
[2021-11-29] MEDS ORDERED: MELATONIN 3 MG TAB PO PRN (23:00)
[2021-11-29] MEDS ORDERED: GUAIFENESIN/DEXTROMETHORPHAN LIQD 5 ML UDC PO PRN (23:00)
[2021-11-29] MEDS ORDERED: ACETAMINOPHEN 325 MG TAB PO PRN (23:00)
[2021-11-29] MEDS: FUROSEMIDE INJ 10 MG/ML 4 ML VIAL IV SCH (23:00)
[2021-11-29] MEDS ORDERED: METOPROLOL TARTRATE INJ 1 MG/ML VIAL IV PRN (23:15)
[2021-11-29] MEDS: IPRATROPIUM BROMIDE 0.02% 2.5 ML NEB NEB SCH (23:35)
[2021-11-29] MEDS: ALBUTEROL SULF 0.083% NEB SOLN 3 ML NEB NEB PRN (23:35)
[2021-11-29 23:40] LABS: CREATINE KINASE 69 IU/L (30-200)
[2021-11-29] MEDS ORDERED: FEOSOL325 MG PO (23:54)
[2021-11-29] MEDS ORDERED: LIPITOR10 MG PO (23:54)
[2021-11-29] MEDS ORDERED: SINEMET 25-1001 EACH PO (23:54)
[2021-11-29] MEDS ORDERED: ELIQUIS2.5 MG PO (23:54)
[2021-11-29] MEDS ORDERED: ISOSORBIDE MONO30 MG PO (23:54)
[2021-11-29] MEDS ORDERED: K-DUR10 MEQ PO (23:54)
[2021-11-29] MEDS ORDERED: ENTACAPONE200 MG PO (23:54)
[2021-11-29] MEDS ORDERED: METOPROLOL SUCC25 MG PO (23:54)
[2021-11-29] MEDS ORDERED: ROPINIROLE HCL1 MG PO (23:57)
[2021-11-30] VITALS (23 sets, daily range): BP systolic 87–139; BP diastolic 46–82
[2021-11-30 02:25] LABS: ABG HCO3 23 mmol/L (22-26); ABG PCO2 33 mmHg (35-45); ABG PH 7.45 (7.35-7.45); ABG PO2 64 mmHg (80-105); ABG TCO2 24
[2021-11-30] MEDS: IPRATROPIUM BROMIDE 0.02% 2.5 ML NEB NEB SCH ×6 (03:00→22:45)
[2021-11-30 04:57] LABS: BASOPHILS % 0.3 % (0.0-1.0); EOSINOPHILS # (AUTO) 0.1 (0.0-0.4); EOSINOPHILS % 0.9 % (0.0-6.0); HEMATOCRIT 30.6 % (38.2-49.6); HEMOGLOBIN 9.9 g/dL (14.0-18.0); LYMPHOCYTES # (AUTO) 0.7 (1.0-3.2); LYMPHOCYTES % 8.9 % (18.0-39.1); MEAN CORPUSCULAR HEMOGLOBIN 31.1 pg (28-32); MEAN CORPUSCULAR HGB CONC 32.4 g/dL (31-35); MEAN CORPUSCULAR VOLUME 96.2 fL (81-99); MONOCYTES # (AUTO) 0.7 (0.2-0.8); MONOCYTES % 8.7 % (4.4-11.3); NEUTROPHILS # (AUTO) 6.1 (2.1-6.9); NEUTROPHILS % 80.9 % (38.7-80.0); PLATELET COUNT 243 x10e3/uL (140-360); RED BLOOD COUNT 3.18 x10e6/uL (4.3-5.7); RED CELL DISTRIBUTION WIDTH 13.4 % (11.7-14.4)
[2021-11-30 05:28] LABS: ALBUMIN 3.2 g/dL (3.5-5.0); ALBUMIN/GLOBULIN RATIO 0.9 (0.8-2.0); ANION GAP 18.4 mmol/L (8-16); CALCIUM 8.9 mg/dL (8.4-10.2); CREATININE, SERUM 1.03 mg/dL (0.72-1.25); POTASSIUM 3.4 mmol/L (3.5-5.1)
[2021-11-30 05:42] LABS: FERRITIN 638.46 ng/mL (21.81-274.66)
[2021-11-30 06:06] LABS: MAGNESIUM 1.7 MG/DL (1.3-2.1); PHOSPHORUS 4.1 MG/DL (2.3-4.7)
[2021-11-30 06:28] LABS: THYROID STIMULATING HORMONE 1.738 uIU/mL (0.350-4.940)
[2021-11-30] MEDS: FUROSEMIDE INJ 10 MG/ML 4 ML VIAL IV SCH ×2 (08:31→20:30)
[2021-11-30] MEDS: INSULIN REGULAR, HUMAN 100 UNIT/1 ML SQ SCH ×4 (08:31→20:50)
[2021-11-30] MEDS: METOPROLOL TARTRATE 50 MG TAB PO SCH ×2 (09:00→16:33)
[2021-11-30] MEDS ORDERED: ENOXAPARIN INJ 80 MG/0.8 ML SYR SC SCH (09:00)
[2021-11-30] MEDS: MULTIVITAMINS/MINERALS TAB PO SCH (09:00)
[2021-11-30] MEDS ORDERED: CELEBREX200 MG PO (11:32)
[2021-11-30] MEDS ORDERED: ELIQUIS2.5 MG PO (11:32)
[2021-11-30] MEDS ORDERED: ENTACAPONE200 MG PO (11:33)
[2021-11-30] MEDS ORDERED: FEROSUL325 MG PO (11:34)
[2021-11-30] MEDS ORDERED: FLOMAX0.4 MG PO (11:35)
[2021-11-30] MEDS ORDERED: LANTUS 3ML100 UNITS/ SC (11:39)
[2021-11-30] MEDS ORDERED: LASIX20 MG PO (11:40)
[2021-11-30] MEDS ORDERED: ULTRAM50 MG PO (11:44)
[2021-11-30] MEDS ORDERED: ONDANSETRON ODT8 MG PO (11:46)
[2021-11-30] MEDS: ROPINIROLE HCL 2 MG TAB PO SCH ×3 (12:36→20:31)
[2021-11-30] MEDS: NON-FORMULARY MEDICATION (Entacapone 200 MG) PO SCH ×3 (12:37→20:31)
[2021-11-30] MEDS: CARBIDOPA/LEVODOPA 25/100 TAB PO SCH ×3 (12:37→20:31)
[2021-11-30] MEDS: DOXYCYCLINE HYCLATE TABLET 100 MG TAB PO SCH (16:33)
[2021-11-30] MEDS: APIXAB 2.5 MG TABLET PO SCH (16:33)
[2021-11-30] MEDS: ALBUTEROL SULF 0.083% NEB SOLN 3 ML NEB NEB PRN (19:40)
[2021-11-30] MEDS: ATORVASTATIN 40 MG TAB PO SCH (20:30)
[2021-12-01] VITALS (26 sets, daily range): BP systolic 88–136; BP diastolic 38–90
[2021-12-01] MEDS: IPRATROPIUM BROMIDE 0.02% 2.5 ML NEB NEB SCH ×7 (03:45→23:55)
[2021-12-01] MEDS: ALBUTEROL SULF 0.083% NEB SOLN 3 ML NEB NEB PRN ×6 (07:45→23:35)
[2021-12-01] MEDS: INSULIN REGULAR, HUMAN 100 UNIT/1 ML SQ SCH ×4 (09:06→21:00)
[2021-12-01] MEDS: FUROSEMIDE INJ 10 MG/ML 4 ML VIAL IV SCH (09:07)
[2021-12-01] MEDS: NON-FORMULARY MEDICATION (Entacapone 200 MG) PO SCH ×4 (09:07→21:08)
[2021-12-01] MEDS: ISOSORBIDE MONONITRATE 30 MG TAB CR PO SCH (09:12)
[2021-12-01] MEDS: METOPROLOL TARTRATE 50 MG TAB PO SCH ×2 (09:12→16:45)
[2021-12-01] MEDS: MULTIVITAMINS/MINERALS TAB PO SCH (09:12)
[2021-12-01] MEDS: ROPINIROLE HCL 2 MG TAB PO SCH ×4 (09:13→21:08)
[2021-12-01] MEDS: CARBIDOPA/LEVODOPA 25/100 TAB PO SCH ×4 (09:13→21:07)
[2021-12-01] MEDS: DOXYCYCLINE HYCLATE TABLET 100 MG TAB PO SCH ×2 (09:13→17:03)
[2021-12-01] MEDS: APIXAB 2.5 MG TABLET PO SCH ×2 (09:13→17:03)
[2021-12-01 09:40] LABS: BASOPHILS % 0.5 % (0.0-1.0); EOSINOPHILS # (AUTO) 0.1 (0.0-0.4); EOSINOPHILS % 2.2 % (0.0-6.0); HEMATOCRIT 28.1 % (38.2-49.6); HEMOGLOBIN 9.3 g/dL (14.0-18.0); LYMPHOCYTES # (AUTO) 0.5 (1.0-3.2); LYMPHOCYTES % 9.1 % (18.0-39.1); MEAN CORPUSCULAR HEMOGLOBIN 31.3 pg (28-32); MEAN CORPUSCULAR HGB CONC 33.1 g/dL (31-35); MEAN CORPUSCULAR VOLUME 94.6 fL (81-99); MONOCYTES # (AUTO) 0.3 (0.2-0.8); MONOCYTES % 5.4 % (4.4-11.3); NEUTROPHILS # (AUTO) 4.5 (2.1-6.9); NEUTROPHILS % 82.4 % (38.7-80.0); PLATELET COUNT 251 x10e3/uL (140-360); RED BLOOD COUNT 2.97 x10e6/uL (4.3-5.7); RED CELL DISTRIBUTION WIDTH 13.3 % (11.7-14.4)
[2021-12-01 09:46] LABS: ANION GAP 15.2 mmol/L (8-16); CALCIUM 8.4 mg/dL (8.4-10.2); CREATININE, SERUM 1.03 mg/dL (0.72-1.25); POTASSIUM 3.2 mmol/L (3.5-5.1)
[2021-12-01] MEDS ORDERED: POTASSIUM CHLORIDE 20MEQ/100ML 200 ML IV ONE (11:00)
[2021-12-01] MEDS: ATORVASTATIN 40 MG TAB PO SCH (21:07)
[2021-12-02] VITALS (14 sets, daily range): BP systolic 96–145; BP diastolic 52–75
[2021-12-02] MEDS: ALBUTEROL SULF 0.083% NEB SOLN 3 ML NEB NEB PRN ×4 (03:45→14:45)
[2021-12-02] MEDS: IPRATROPIUM BROMIDE 0.02% 2.5 ML NEB NEB SCH ×6 (03:45→23:10)
[2021-12-02 06:29] LABS: BASOPHILS % 0.3 % (0.0-1.0); EOSINOPHILS # (AUTO) 0.1 (0.0-0.4); EOSINOPHILS % 2.2 % (0.0-6.0); HEMATOCRIT 26.4 % (38.2-49.6); HEMOGLOBIN 8.9 g/dL (14.0-18.0); LYMPHOCYTES # (AUTO) 0.5 (1.0-3.2); LYMPHOCYTES % 7.5 % (18.0-39.1); MEAN CORPUSCULAR HEMOGLOBIN 31.7 pg (28-32); MEAN CORPUSCULAR HGB CONC 33.7 g/dL (31-35); MONOCYTES # (AUTO) 0.4 (0.2-0.8); MONOCYTES % 6.7 % (4.4-11.3); NEUTROPHILS # (AUTO) 5.2 (2.1-6.9); NEUTROPHILS % 83.1 % (38.7-80.0); PLATELET COUNT 251 x10e3/uL (140-360); RED BLOOD COUNT 2.81 x10e6/uL (4.3-5.7); RED CELL DISTRIBUTION WIDTH 13.3 % (11.7-14.4)
[2021-12-02 06:58] LABS: ALBUMIN 2.9 g/dL (3.5-5.0); ALBUMIN/GLOBULIN RATIO 0.8 (0.8-2.0); ALKALINE PHOSPHATASE 89 IU/L (40-150); ANION GAP 16.4 mmol/L (8-16); BLOOD UREA NITROGEN 25 mg/dL (7-26); BUN/CREATININE RATIO 23 (6-25); CALCIUM 8.6 mg/dL (8.4-10.2); CARBON DIOXIDE 26 mmol/L (22-29); CHLORIDE 103 mmol/L (98-107); CREATININE, SERUM 1.09 mg/dL (0.72-1.25); GLUCOSE 209 mg/dL (74-118); POTASSIUM 3.4 mmol/L (3.5-5.1); SODIUM 142 mmol/L (136-145)
[2021-12-02 07:01] LABS: ALANINE AMINOTRANSFERASE < 6 IU/L (0-55)
[2021-12-02] MEDS: INSULIN REGULAR, HUMAN 100 UNIT/1 ML SQ SCH ×4 (08:01→21:00)
[2021-12-02] MEDS: ISOSORBIDE MONONITRATE 30 MG TAB CR PO SCH (08:15)
[2021-12-02] MEDS: MULTIVITAMINS/MINERALS TAB PO SCH (08:15)
[2021-12-02] MEDS: APIXAB 2.5 MG TABLET PO SCH ×2 (08:15→17:11)
[2021-12-02] MEDS: DOXYCYCLINE HYCLATE TABLET 100 MG TAB PO SCH ×2 (08:15→17:11)
[2021-12-02] MEDS: CARBIDOPA/LEVODOPA 25/100 TAB PO SCH ×4 (08:16→20:32)
[2021-12-02] MEDS: ROPINIROLE HCL 2 MG TAB PO SCH ×4 (08:16→20:32)
[2021-12-02] MEDS: METOPROLOL TARTRATE 50 MG TAB PO SCH ×2 (08:16→16:01)
[2021-12-02] MEDS: NON-FORMULARY MEDICATION (Entacapone 200 MG) PO SCH ×4 (08:17→20:22)
[2021-12-02] MEDS ORDERED: SUCRALFATE 1 GM TAB PO ONE (08:45)
[2021-12-02] MEDS ORDERED: FUROSEMIDE INJ 10 MG/ML 4 ML VIAL IV SCH (09:00)
[2021-12-02] MEDS ORDERED: ONDANSETRON HCL 4 MG ORAL DISINTEGRATING TAB PO PRN (11:00)
[2021-12-02] MEDS ORDERED: POTASSIUM CHLORIDE 10MEQ EA PO ONE (11:30)
[2021-12-02] MEDS: ATORVASTATIN 40 MG TAB PO SCH (20:31)
[2021-12-03] VITALS (7 sets, daily range): BP systolic 100–141; BP diastolic 62–68
[2021-12-03] MEDS: IPRATROPIUM BROMIDE 0.02% 2.5 ML NEB NEB SCH ×6 (03:00→23:15)
[2021-12-03 06:08] LABS: ALBUMIN/GLOBULIN RATIO 0.9 (0.8-2.0); ANION GAP 13.9 mmol/L (8-16); CALCIUM 9.3 mg/dL (8.4-10.2); CREATININE, SERUM 1.05 mg/dL (0.72-1.25); POTASSIUM 3.9 mmol/L (3.5-5.1)
[2021-12-03 06:57] LABS: BASOPHILS % 0.6 % (0.0-1.0); EOSINOPHILS # (AUTO) 0.3 (0.0-0.4); EOSINOPHILS % 5.3 % (0.0-6.0); HEMATOCRIT 28.9 % (38.2-49.6); HEMOGLOBIN 9.6 g/dL (14.0-18.0); LYMPHOCYTES # (AUTO) 0.7 (1.0-3.2); LYMPHOCYTES % 10.8 % (18.0-39.1); MEAN CORPUSCULAR HEMOGLOBIN 31.3 pg (28-32); MEAN CORPUSCULAR HGB CONC 33.2 g/dL (31-35); MEAN CORPUSCULAR VOLUME 94.1 fL (81-99); MONOCYTES # (AUTO) 0.4 (0.2-0.8); MONOCYTES % 6.1 % (4.4-11.3); NEUTROPHILS # (AUTO) 4.9 (2.1-6.9); PLATELET COUNT 326 x10e3/uL (140-360); RED BLOOD COUNT 3.07 x10e6/uL (4.3-5.7); RED CELL DISTRIBUTION WIDTH 13.3 % (11.7-14.4)
[2021-12-03] MEDS: ROPINIROLE HCL 2 MG TAB PO SCH ×4 (08:52→21:00)
[2021-12-03] MEDS: DOXYCYCLINE HYCLATE TABLET 100 MG TAB PO SCH ×2 (08:52→17:11)
[2021-12-03] MEDS: APIXAB 2.5 MG TABLET PO SCH ×2 (08:53→17:11)
[2021-12-03] MEDS: FUROSEMIDE 40 MG TAB PO SCH (08:53)
[2021-12-03] MEDS: MULTIVITAMINS/MINERALS TAB PO SCH (08:53)
[2021-12-03] MEDS: CARBIDOPA/LEVODOPA 25/100 TAB PO SCH ×4 (08:53→21:00)
[2021-12-03] MEDS: ISOSORBIDE MONONITRATE 30 MG TAB CR PO SCH (08:54)
[2021-12-03] MEDS: METOPROLOL TARTRATE 50 MG TAB PO SCH ×2 (08:55→17:11)
[2021-12-03] MEDS: NON-FORMULARY MEDICATION (Entacapone 200 MG) PO SCH ×4 (09:00→21:00)
[2021-12-03] MEDS: INSULIN REGULAR, HUMAN 100 UNIT/1 ML SQ SCH ×4 (09:00→21:00)
[2021-12-03] MEDS: ATORVASTATIN 40 MG TAB PO SCH (21:00)
[2021-12-04] VITALS (7 sets, daily range): BP systolic 93–134; BP diastolic 51–69
[2021-12-04] MEDS: IPRATROPIUM BROMIDE 0.02% 2.5 ML NEB NEB SCH ×6 (03:50→23:15)
[2021-12-04] MEDS: INSULIN REGULAR, HUMAN 100 UNIT/1 ML SQ SCH ×4 (07:30→19:52)
[2021-12-04] MEDS: METOPROLOL TARTRATE 50 MG TAB PO SCH ×2 (08:42→16:19)
[2021-12-04] MEDS: MULTIVITAMINS/MINERALS TAB PO SCH (08:43)
[2021-12-04] MEDS: CARBIDOPA/LEVODOPA 25/100 TAB PO SCH ×4 (08:43→21:27)
[2021-12-04] MEDS: FUROSEMIDE 40 MG TAB PO SCH (08:44)
[2021-12-04] MEDS: APIXAB 2.5 MG TABLET PO SCH (08:44)
[2021-12-04] MEDS: ROPINIROLE HCL 2 MG TAB PO SCH ×4 (08:44→21:27)
[2021-12-04] MEDS: NON-FORMULARY MEDICATION (Entacapone 200 MG) PO SCH ×4 (08:45→21:27)
[2021-12-04] MEDS: DOXYCYCLINE HYCLATE TABLET 100 MG TAB PO SCH ×2 (08:45→16:19)
[2021-12-04] MEDS: ISOSORBIDE MONONITRATE 30 MG TAB CR PO SCH (08:45)
[2021-12-04] MEDS: APIXABAN 5 MG TABLET PO SCH (16:19)
[2021-12-04] MEDS: ATORVASTATIN 40 MG TAB PO SCH (21:34)
[2021-12-05] VITALS (8 sets, daily range): BP systolic 102–138; BP diastolic 53–68
[2021-12-05] MEDS ORDERED: SODIUM CHLORIDE 0.9% 250ML 250 ML ONE (00:18)
[2021-12-05] MEDS: IPRATROPIUM BROMIDE 0.02% 2.5 ML NEB NEB SCH ×6 (03:50→23:43)
[2021-12-05 04:55] LABS: BASOPHILS % 0.7 % (0.0-1.0); EOSINOPHILS # (AUTO) 0.2 (0.0-0.4); EOSINOPHILS % 4.1 % (0.0-6.0); HEMATOCRIT 29.2 % (38.2-49.6); HEMOGLOBIN 9.6 g/dL (14.0-18.0); LYMPHOCYTES % 16.8 % (18.0-39.1); MEAN CORPUSCULAR HGB CONC 32.9 g/dL (31-35); MEAN CORPUSCULAR VOLUME 94.2 fL (81-99); MONOCYTES # (AUTO) 0.4 (0.2-0.8); MONOCYTES % 6.5 % (4.4-11.3); NEUTROPHILS # (AUTO) 4.2 (2.1-6.9); NEUTROPHILS % 71.7 % (38.7-80.0); PLATELET COUNT 304 x10e3/uL (140-360); RED CELL DISTRIBUTION WIDTH 12.9 % (11.7-14.4)
[2021-12-05 05:14] LABS: ANION GAP 20.5 mmol/L (8-16); CALCIUM 8.7 mg/dL (8.4-10.2); CREATININE, SERUM 1.02 mg/dL (0.72-1.25); POTASSIUM 3.5 mmol/L (3.5-5.1)
[2021-12-05 05:32] LABS: MAGNESIUM 1.9 MG/DL (1.3-2.1); PHOSPHORUS 3.8 MG/DL (2.3-4.7)
[2021-12-05] MEDS: CARBIDOPA/LEVODOPA 25/100 TAB PO SCH ×3 (06:02→17:06)
[2021-12-05] MEDS: ROPINIROLE HCL 2 MG TAB PO SCH ×3 (06:02→17:06)
[2021-12-05] MEDS: NON-FORMULARY MEDICATION (Entacapone 200 MG) PO SCH ×3 (06:03→17:16)
[2021-12-05] MEDS: INSULIN REGULAR, HUMAN 100 UNIT/1 ML SQ SCH ×4 (07:30→21:54)
[2021-12-05] MEDS: MULTIVITAMINS/MINERALS TAB PO SCH (09:06)
[2021-12-05] MEDS: ISOSORBIDE MONONITRATE 30 MG TAB CR PO SCH (09:06)
[2021-12-05] MEDS: PANTOPRAZOLE SOD 40 MG TABEC PO SCH (09:06)
[2021-12-05] MEDS: DOXYCYCLINE HYCLATE TABLET 100 MG TAB PO SCH ×2 (09:06→17:06)
[2021-12-05] MEDS: FUROSEMIDE 40 MG TAB PO SCH (09:06)
[2021-12-05] MEDS: APIXABAN 5 MG TABLET PO SCH ×2 (09:06→17:06)
[2021-12-05] MEDS: METOPROLOL TARTRATE 50 MG TAB PO SCH ×2 (09:07→17:00)
[2021-12-05] MEDS: ATORVASTATIN 40 MG TAB PO SCH (21:53)
[2021-12-06] VITALS: BP 118/60
[2021-12-06] MEDS: CARBIDOPA/LEVODOPA 25/100 TAB PO SCH ×2 (00:19→06:13)
[2021-12-06] MEDS: ROPINIROLE HCL 2 MG TAB PO SCH ×2 (00:19→06:13)
[2021-12-06] MEDS: NON-FORMULARY MEDICATION (Entacapone 200 MG) PO SCH ×2 (00:20→06:13)
[2021-12-06] MEDS: IPRATROPIUM BROMIDE 0.02% 2.5 ML NEB NEB SCH ×2 (03:45→08:15)
[2021-12-06 04:00] VITALS: BP 119/55
[2021-12-06 08:18] VITALS: BP 106/55
[2021-12-06 08:51] VITALS: BP 106/55
[2021-12-06] MEDS: DOXYCYCLINE HYCLATE TABLET 100 MG TAB PO SCH (08:57)
[2021-12-06] MEDS: MULTIVITAMINS/MINERALS TAB PO SCH (08:58)
[2021-12-06] MEDS: FUROSEMIDE 40 MG TAB PO SCH (08:58)
[2021-12-06] MEDS: PANTOPRAZOLE SOD 40 MG TABEC PO SCH (08:58)
[2021-12-06] MEDS: APIXABAN 5 MG TABLET PO SCH (08:58)
[2021-12-06] MEDS: METOPROLOL TARTRATE 50 MG TAB PO SCH (08:58)
[2021-12-06] MEDS: ISOSORBIDE MONONITRATE 30 MG TAB CR PO SCH (08:58)
[2021-12-06] MEDS: INSULIN REGULAR, HUMAN 100 UNIT/1 ML SQ SCH (09:14)
== END 2021-12-06 12:15 | DRG 177 ==
LOC: ER 06:21 → ERHOLD 07:37 → ICU 17:00 → MED/SURG 12-02 09:30
PROVIDERS: ADMIT Internal Medicine; ATTEND Internal Medicine
DX: J69.0 Pneumonitis due to inhalation of food and vomit (principal); I50.33 Acute on chronic diastolic (congestive) heart failure; R57.8 Other shock; J96.01 Acute respiratory failure with hypoxia; I48.21 Permanent atrial fibrillation; I11.0 Hypertensive heart disease with heart failure; J18.9 Pneumonia, unspecified organism; G20 Parkinson's disease; R13.10 Dysphagia, unspecified; Z20.822 Contact with and (suspected) exposure to COVID-19; Z79.01 Long term (current) use of anticoagulants; R29.6 Repeated falls; Z74.09 Other reduced mobility; I25.10 Atherosclerotic heart disease of native coronary artery without angina pectoris; Z86.718 Personal history of other venous thrombosis and embolism; Z86.711 Personal history of pulmonary embolism; E11.9 Type 2 diabetes mellitus without complications; G47.30 Sleep apnea, unspecified; Z95.5 Presence of coronary angioplasty implant and graft; I89.0 Lymphedema, not elsewhere classified; F03.90 Unspecified dementia, unspecified severity, without behavioral disturbance, psychotic disturbance, mood disturbance, and anxiety; E66.9 Obesity, unspecified; Z68.33 Body mass index [BMI] 33.0-33.9, adult; G25.81 Restless legs syndrome; Z66 Do not resuscitate; Z79.4 Long term (current) use of insulin
CPT/HCPCS: 36415; 36600; 71045; 71250; 74230; 80048; 80053; 82550; 82553; 82607; 82728; 82805; 82948; 83540; 83605; 83735; 83880; 84100; 84443; 84466; 84484; 85025; 87040; 87400; 87420; 93005; 93306; 94640; 94660; 94799; 96372; 99251; 99284; J0456; J1650; J1817; J1940; J2543; J3480; J7030; J7050

== ENCOUNTER 2023-07-09 11:38 | Inpatient (IN) | payer MEDICARE, OTHER ==
[~2023-07-09] VITALS: Ht 165.1 cm; Wt 65.3 kg
[~2023-07-09 11:38] MED LIST changes: +CELEBREX200 MG PO; +ELIQUIS2.5 MG PO; +FEOSOL325 MG PO; +FLOMAX0.4 MG PO; +K-DUR10 MEQ PO; +LANTUS 3ML100 UNITS/ SC; +LIPITOR10 MG PO; +ONDANSETRON ODT8 MG PO; +PAXLOVID 300-11 EACH PO; +ULTRAM50 MG PO
[2023-07-09 12:15] LABS: BASOPHILS % 0.7 % (0.0-1.0); EOSINOPHILS # (AUTO) 0.1 (0.0-0.4); EOSINOPHILS % 1.9 % (0.0-6.0); HEMATOCRIT 26.6 % (38.2-49.6); HEMOGLOBIN 9.1 g/dL (14.0-18.0); LYMPHOCYTES # (AUTO) 0.8 (1.0-3.2); LYMPHOCYTES % 19.6 % (18.0-39.1); MEAN CORPUSCULAR HEMOGLOBIN 31.9 pg (28-32); MEAN CORPUSCULAR HGB CONC 34.2 g/dL (31-35); MEAN CORPUSCULAR VOLUME 93.3 fL (81-99); MONOCYTES # (AUTO) 0.4 (0.2-0.8); MONOCYTES % 8.4 % (4.4-11.3); NEUTROPHILS % 69.2 % (38.7-80.0); PLATELET COUNT 228 x10e3/uL (140-360); RED BLOOD COUNT 2.85 x10e6/uL (4.3-5.7); WHITE BLOOD COUNT 4.29 x10e3/uL (4.8-10.8)
[2023-07-09 12:19] LABS: INR 1.16; PROTHROMBIN TIME 15.6 seconds (11.9-14.5)
[2023-07-09 12:20] LABS: PARTIAL THROMBOPLASTIN TIME 38.4 seconds (23.8-35.5)
[2023-07-09 12:30] LABS: ALANINE AMINOTRANSFERASE 14 IU/L (0-55); ALBUMIN 3.9 g/dL (3.5-5.0); ALBUMIN/GLOBULIN RATIO 1.1 (0.8-2.0); ALKALINE PHOSPHATASE 92 IU/L (40-150); ANION GAP 17.7 mmol/L (8-16); BILIRUBIN,TOTAL 0.4 mg/dL (0.2-1.2); BLOOD UREA NITROGEN 41 mg/dL (7-26); BUN/CREATININE RATIO 34 (6-25); CALCIUM 9.4 mg/dL (8.4-10.2); CARBON DIOXIDE 24 mmol/L (22-29); CHLORIDE 103 mmol/L (98-107); CREATINE KINASE 98 IU/L (30-200); CREATININE, SERUM 1.22 mg/dL (0.72-1.25); EST GLOMERULAR FILTRATION RATE 63 ML/MIN (>=60); GLUCOSE 135 mg/dL (74-118); MAGNESIUM 1.8 MG/DL (1.3-2.1); POTASSIUM 3.7 mmol/L (3.5-5.1); SODIUM 141 mmol/L (136-145); TOTAL PROTEIN 7.5 g/dL (6.5-8.1)
[2023-07-09 12:38] LABS: TROPONIN I < 0.001 ng/mL (0-0.300)
[2023-07-09] MEDS ORDERED: SODIUM CHLORIDE 0.9% 500ML 500 ML ONE (14:10)
[2023-07-09 14:16] LABS: INFLUENZAE A&B ANTIGEN (RAPID) NEGATIVE (NEGATIVE); RESPIRATORY SYNC. VIRUS NEGATIVE (NEGATIVE)
[2023-07-09] MEDS: SODIUM CHLORIDE 0.9% 500ML 500 ML IV ONE (14:17)
[2023-07-09 17:11] VITALS: BP 148/71; PULSE 65; RESP 20; TEMP 98; O2SAT 100
[2023-07-09] MEDS: SODIUM CHLORIDE 0.9% 1000ML 1,000 ML IV ONE (17:51)
[2023-07-09 20:00] VITALS: BP 121/60; PULSE 69; RESP 18; TEMP 98.1; O2SAT 100
[2023-07-09] MEDS ORDERED: SIMETHICONE 80 MG CHEW PO PRN (20:30)
[2023-07-09] MEDS ORDERED: ONDANSETRON HCL INJ 2MG/ML 2ML 2 MG/ML VIAL IV PRN (20:30)
[2023-07-09] MEDS ORDERED: METOPROLOL TARTRATE INJ 1 MG/ML VIAL IV PRN (20:30)
[2023-07-09] MEDS ORDERED: ALBUTEROL/IPRATROPIUM 3 ML NEB NEB PRN (20:30)
[2023-07-09 21:00] VITALS: BP 121/60; PULSE 69; RESP 18; TEMP 98.1; O2SAT 100
[2023-07-09] MEDS: TAMSULOSIN HCL 0.4 MG CAP PO SCH (22:00)
[2023-07-09] MEDS: METRONIDAZOLE 500MG/NS 100ML IV SCH (22:00)
[2023-07-09] MEDS: CARBIDOPA/LEVODOPA 25/100 TAB PO SCH (22:01)
[2023-07-09] MEDS: ATORVASTATIN 10 MG TAB PO SCH (22:01)
[2023-07-09] MEDS: ROPINIROLE HCL 1 MG TAB PO SCH (22:01)
[2023-07-09] MEDS: METOPROLOL SUCCINATE 25 MG TAB XL PO SCH (22:02)
[2023-07-09] MEDS: VANCOMYCIN 250MG/5ML ORAL SOLN PO SCH (22:28)
[2023-07-09 22:49] LABS: CREATINE KINASE 89 IU/L (30-200)
[2023-07-09 23:02] LABS: FOLATE 15.3 ng/mL (7.0-15.4)
[2023-07-09 23:10] LABS: FERRITIN 334.27 ng/mL (21.81-274.66)
[2023-07-09 23:11] LABS: CHOL/HDL RATIO 2.5 (3.9-4.7)
[2023-07-09 23:25] LABS: TROPONIN I < 0.001 ng/mL (0-0.300)
[2023-07-10] VITALS (8 sets, daily range): BP systolic 94–175; BP diastolic 54–88; PULSE 53–82; RESP 17–20; TEMP 97.6–98.3; O2SAT 95–100
[2023-07-10 05:34] LABS: BASOPHILS % 0.6 % (0.0-1.0); EOSINOPHILS # (AUTO) 0.2 (0.0-0.4); EOSINOPHILS % 4.7 % (0.0-6.0); HEMATOCRIT 24.4 % (38.2-49.6); HEMOGLOBIN 8.4 g/dL (14.0-18.0); LYMPHOCYTES # (AUTO) 0.9 (1.0-3.2); LYMPHOCYTES % 25.8 % (18.0-39.1); MEAN CORPUSCULAR HEMOGLOBIN 31.9 pg (28-32); MEAN CORPUSCULAR HGB CONC 34.4 g/dL (31-35); MEAN CORPUSCULAR VOLUME 92.8 fL (81-99); MONOCYTES # (AUTO) 0.4 (0.2-0.8); NEUTROPHILS # (AUTO) 2.1 (2.1-6.9); NEUTROPHILS % 58.6 % (38.7-80.0); PLATELET COUNT 202 x10e3/uL (140-360); RED BLOOD COUNT 2.63 x10e6/uL (4.3-5.7); RED CELL DISTRIBUTION WIDTH 13.9 % (11.7-14.4)
[2023-07-10 06:15] LABS: ALBUMIN 3.4 g/dL (3.5-5.0); ALBUMIN/GLOBULIN RATIO 1.2 (0.8-2.0); ANION GAP 13.3 mmol/L (8-16); BILIRUBIN,TOTAL 0.5 mg/dL (0.2-1.2); CALCIUM 9.2 mg/dL (8.4-10.2); CREATININE, SERUM 1.19 mg/dL (0.72-1.25); TOTAL PROTEIN 6.3 g/dL (6.5-8.1)
[2023-07-10 06:24] LABS: POTASSIUM 3.3 mmol/L (3.5-5.1)
[2023-07-10 06:39] LABS: MAGNESIUM 1.8 MG/DL (1.3-2.1); PHOSPHORUS 3.8 MG/DL (2.3-4.7)
[2023-07-10 07:05] LABS: CREATINE KINASE 77 IU/L (30-200)
[2023-07-10 07:06] LABS: TROPONIN I < 0.001 ng/mL (0-0.300)
[2023-07-10] MEDS: ISOSORBIDE MONONITRATE 30 MG TAB CR PO SCH (09:00)
[2023-07-10] MEDS ORDERED: CARBIDOPA/LEVODOPA 25/100 TAB ONE (10:11)
[2023-07-10] MEDS ORDERED: ATORVASTATIN 40 MG TAB ONE (10:11)
[2023-07-10] MEDS ORDERED: FERROUS SULFATE 325 MG TAB ONE (10:11)
[2023-07-10] MEDS ORDERED: METOPROLOL SUCCINATE 25 MG TAB XL ONE (10:11)
[2023-07-10] MEDS ORDERED: METRONIDAZOLE 500MG/NS 100ML IV ONE (10:11)
[2023-07-10] MEDS ORDERED: ROPINIROLE HCL 2 MG TAB ONE (10:11)
[2023-07-10] MEDS ORDERED: PIPERACILLIN/TAZOBACTAM 3.375 GM VIAL ONE (10:11)
[2023-07-10] MEDS ORDERED: TAMSULOSIN HCL 0.4 MG CAP ONE (10:11)
[2023-07-10] MEDS ORDERED: ISOSORBIDE MONONITRATE 30 MG TAB CR PO ONE (10:11)
[2023-07-10] MEDS ORDERED: Sodium Chloride 0.9% 50ML Bag ONE (10:11)
[2023-07-10] MEDS ORDERED: APIXABAN 2.5 MG TABLET ONE (10:11)
[2023-07-10] MEDS: FERROUS SULFATE 325 MG TAB PO SCH (10:42)
[2023-07-10] MEDS: ROPINIROLE HCL 2 MG TAB PO SCH (10:42)
[2023-07-10] MEDS: APIXABAN 2.5 MG TABLET PO SCH (10:49)
[2023-07-10] MEDS: ATORVASTATIN 40 MG TAB PO SCH (22:02)
[2023-07-11] VITALS (7 sets, daily range): BP systolic 102–136; BP diastolic 50–68; PULSE 56–71; RESP 18–22; TEMP 97.6–98; O2SAT 98–100
[2023-07-11 06:45] LABS: ANION GAP 12.2 mmol/L (8-16); CALCIUM 8.8 mg/dL (8.4-10.2); CREATININE, SERUM 1.04 mg/dL (0.72-1.25); MAGNESIUM 1.7 MG/DL (1.3-2.1); PHOSPHORUS 4.1 MG/DL (2.3-4.7)
[2023-07-11 06:46] LABS: POTASSIUM 3.2 mmol/L (3.5-5.1)
[2023-07-11] MEDS ORDERED: METRONIDAZOLE 500MG/NS 100ML IV ONE (08:54)
[2023-07-11] MEDS ORDERED: ROPINIROLE HCL 2 MG TAB ONE (08:54)
[2023-07-11] MEDS ORDERED: METOPROLOL TARTRATE 25 MG TAB ONE (08:54)
[2023-07-11] MEDS ORDERED: CARBIDOPA/LEVODOPA 25/100 TAB ONE (08:54)
[2023-07-11] MEDS ORDERED: METOPROLOL SUCCINATE 25 MG TAB XL ONE (08:54)
[2023-07-11] MEDS ORDERED: FERROUS SULFATE 325 MG TAB ONE (08:54)
[2023-07-11] MEDS ORDERED: TAMSULOSIN HCL 0.4 MG CAP ONE (08:54)
[2023-07-11] MEDS ORDERED: ATORVASTATIN 40 MG TAB ONE (08:54)
[2023-07-11] MEDS ORDERED: POTASSIUM CHLORIDE 20 MEQ TAB CR PO ONE (08:54)
[2023-07-11] MEDS ORDERED: ISOSORBIDE MONONITRATE 30 MG TAB CR PO ONE (08:54)
[2023-07-11] MEDS ORDERED: APIXABAN 2.5 MG TABLET ONE (08:54)
[2023-07-11] MEDS: POTASSIUM CHLORIDE 20 MEQ TAB CR PO ONE (09:56)
[2023-07-11] MEDS: CYANOCOBALAMIN INJ 1,000 MCG/ML VIAL IM ONE (23:08)
[2023-07-12] VITALS (8 sets, daily range): BP systolic 111–148; BP diastolic 57–65; PULSE 50–62; RESP 18; TEMP 97.5–98.6; O2SAT 94–100
[2023-07-12] MEDS: POTASSIUM CHLORIDE 10MEQ EA PO STA (03:02)
[2023-07-12] MEDS: VANCOMYCIN 250MG/5ML ORAL SOLN PO ONE (05:28)
[2023-07-12] MEDS: VANCOMYCIN 250MG/5ML ORAL SOLN PO SCH (06:00)
[2023-07-12] MEDS ORDERED: APIXABAN 2.5 MG TABLET ONE ×3 (08:32→17:43)
[2023-07-12] MEDS ORDERED: FERROUS SULFATE 325 MG TAB ONE ×3 (08:32→17:42)
[2023-07-12] MEDS ORDERED: TAMSULOSIN HCL 0.4 MG CAP ONE ×3 (08:32→21:15)
[2023-07-12] MEDS ORDERED: CYANOCOBALAMIN INJ 1,000 MCG/ML VIAL ONE ×2 (08:32→12:38)
[2023-07-12] MEDS ORDERED: CARBIDOPA/LEVODOPA 25/100 TAB ONE ×4 (08:32→21:14)
[2023-07-12] MEDS ORDERED: ROPINIROLE HCL 2 MG TAB ONE ×4 (08:32→21:13)
[2023-07-12] MEDS ORDERED: ISOSORBIDE MONONITRATE 30 MG TAB CR PO ONE ×2 (08:33→12:38)
[2023-07-12] MEDS ORDERED: BISACODYL 5 MG TAB EC PO ONE ×3 (10:00→12:38)
[2023-07-12] MEDS: CYANOCOBALAMIN INJ 1,000 MCG/ML VIAL IM SCH (10:30)
[2023-07-12] MEDS: BISACODYL 5 MG TAB EC PO ONE (10:32)
[2023-07-12] MEDS ORDERED: POTASSIUM CHLORIDE 20 MEQ TAB CR PO ONE (12:38)
[2023-07-12] MEDS: POTASSIUM CHLORIDE 10MEQ EA PO ONE (12:56)
[2023-07-12] MEDS ORDERED: METRONIDAZOLE 500MG/NS 100ML 100 ML IV ONE ×2 (17:43→21:16)
[2023-07-12] MEDS ORDERED: VANCOMYCIN HCL 125 MG CAPSULE PO ONE ×2 (17:47→21:15)
[2023-07-12] MEDS: VANCOMYCIN HCL 125 MG CAPSULE PO SCH (18:00)
[2023-07-12] MEDS ORDERED: ATORVASTATIN 40 MG TAB ONE (21:13)
[2023-07-12] MEDS ORDERED: METOPROLOL SUCCINATE 25 MG TAB XL ONE (21:13)
[2023-07-12] MEDS ORDERED: MELATONIN 3 MG TAB ONE (21:14)
[2023-07-12] MEDS ORDERED: ACETAMINOPHEN 325 MG TAB ONE (21:14)
[2023-07-12] MEDS: MELATONIN 3 MG TAB PO PRN (21:24)
[2023-07-12] MEDS: ACETAMINOPHEN 325 MG TAB PO PRN (21:25)
[2023-07-13] VITALS (10 sets, daily range): BP systolic 92–138; BP diastolic 49–70; PULSE 58–71; RESP 18; TEMP 97.7–98.1; O2SAT 94–98
[2023-07-13] MEDS ORDERED: BISACODYL 5 MG TAB EC PO ONE (01:10)
[2023-07-13] MEDS: BISACODYL 5 MG TAB EC PO ONE ×2 (01:13→02:06)
[2023-07-13] MEDS ORDERED: METRONIDAZOLE 500MG/NS 100ML 100 ML IV ONE ×3 (05:21→17:50)
[2023-07-13] MEDS ORDERED: VANCOMYCIN HCL 125 MG CAPSULE PO ONE ×2 (05:21→15:15)
[2023-07-13 07:53] LABS: ALBUMIN 3.4 g/dL (3.5-5.0); ALBUMIN/GLOBULIN RATIO 1.2 (0.8-2.0); ANION GAP 13.1 mmol/L (8-16); BILIRUBIN,TOTAL 0.4 mg/dL (0.2-1.2); CREATININE, SERUM 1.01 mg/dL (0.72-1.25); POTASSIUM 4.1 mmol/L (3.5-5.1); TOTAL PROTEIN 6.3 g/dL (6.5-8.1)
[2023-07-13] MEDS ORDERED: CYANOCOBALAMIN INJ 1,000 MCG/ML VIAL ONE (08:54)
[2023-07-13] MEDS ORDERED: CARBIDOPA/LEVODOPA 25/100 TAB ONE ×3 (08:54→17:49)
[2023-07-13] MEDS ORDERED: ROPINIROLE HCL 2 MG TAB ONE ×3 (08:54→17:49)
[2023-07-13] MEDS ORDERED: FERROUS SULFATE 325 MG TAB ONE ×2 (08:54→17:49)
[2023-07-13] MEDS ORDERED: TAMSULOSIN HCL 0.4 MG CAP ONE (08:54)
[2023-07-13] MEDS ORDERED: APIXABAN 2.5 MG TABLET ONE ×2 (08:55→17:49)
[2023-07-13] MEDS ORDERED: ISOSORBIDE MONONITRATE 30 MG TAB CR PO ONE (08:55)
[2023-07-13] MEDS ORDERED: SODIUM BICARBONATE 650 MG TAB ONE ×2 (10:54→15:15)
[2023-07-13] MEDS: SODIUM BICARBONATE 650 MG TAB PO SCH (10:55)
[2023-07-14 04:00] VITALS: BP 116/63; PULSE 66; RESP 20; TEMP 97.8; O2SAT 100
[2023-07-14 06:56] VITALS: PULSE 68; RESP 18; O2SAT 97
[2023-07-14] MEDS ORDERED: SENOKOT8.6 MG PO (08:22)
[2023-07-14] MEDS ORDERED: SODIUM BICARBO650 MG PO (08:22)
[2023-07-14] MEDS ORDERED: METAMUCIL FIBE3.4 GM PO (08:22)
[2023-07-14] MEDS ORDERED: VANCOMYCIN HCL125 MG PO (08:22)
[2023-07-14] MEDS ORDERED: DOCUSATE SODIU100 MG PO (08:22)
[2023-07-14] MEDS ORDERED: SIMETHICONE80 MG PO (08:22)
[2023-07-14] MEDS ORDERED: METRONIDAZOLE500 MG PO (08:22)
[2023-07-14 09:02] VITALS: BP 116/58; PULSE 69; RESP 17; TEMP 98.1; O2SAT 98
[2023-07-14] MEDS ORDERED: TAMSULOSIN HCL 0.4 MG CAP ONE (09:06)
[2023-07-14] MEDS ORDERED: CYANOCOBALAMIN 1,000 MCG TAB ONE (09:06)
[2023-07-14] MEDS ORDERED: APIXABAN 2.5 MG TABLET ONE (09:07)
[2023-07-14] MEDS ORDERED: ISOSORBIDE MONONITRATE 30 MG TAB CR PO ONE (09:07)
[2023-07-14] MEDS ORDERED: FERROUS SULFATE 325 MG TAB ONE (09:07)
[2023-07-14] MEDS ORDERED: ROPINIROLE HCL 2 MG TAB ONE (09:08)
[2023-07-14] MEDS ORDERED: SODIUM BICARBONATE 650 MG TAB ONE (09:08)
[2023-07-14] MEDS ORDERED: CARBIDOPA/LEVODOPA 25/100 TAB ONE (09:08)
[2023-07-14 10:21] VITALS: BP 116/58; PULSE 69; RESP 17; TEMP 98.1; O2SAT 98
[2023-07-14] MEDS ORDERED: ONDANSETRON HCL 4 MG ORAL DISINTEGRATING TAB PO PRN (10:45)
[2023-07-14 11:52] VITALS: BP 105/52; PULSE 66; RESP 17; TEMP 98.3; O2SAT 100
== END 2023-07-14 14:50 | DRG 372 ==
LOC: ER 11:42 → ERHOLD 15:33 → MED/SURG3 16:59
PROVIDERS: ADMIT Internal Medicine; ATTEND Internal Medicine
DX: A04.71 Enterocolitis due to Clostridium difficile, recurrent (principal); I50.32 Chronic diastolic (congestive) heart failure; K59.39 Other megacolon; K59.81 Ogilvie syndrome; G20.A1 Parkinson's disease without dyskinesia, without mention of fluctuations; I48.91 Unspecified atrial fibrillation; I11.0 Hypertensive heart disease with heart failure; I25.10 Atherosclerotic heart disease of native coronary artery without angina pectoris; E11.9 Type 2 diabetes mellitus without complications; Z87.440 Personal history of urinary (tract) infections; K21.9 Gastro-esophageal reflux disease without esophagitis; Z86.718 Personal history of other venous thrombosis and embolism; Z95.5 Presence of coronary angioplasty implant and graft; Z91.041 Radiographic dye allergy status; Z11.52 Encounter for screening for COVID-19; Z79.01 Long term (current) use of anticoagulants; Z79.4 Long term (current) use of insulin; I87.2 Venous insufficiency (chronic) (peripheral); E78.5 Hyperlipidemia, unspecified; G47.33 Obstructive sleep apnea (adult) (pediatric); E66.9 Obesity, unspecified; G25.81 Restless legs syndrome; F03.90 Unspecified dementia, unspecified severity, without behavioral disturbance, psychotic disturbance, mood disturbance, and anxiety; I89.0 Lymphedema, not elsewhere classified; R13.10 Dysphagia, unspecified; Z22.39 Carrier of other specified bacterial diseases; M19.90 Unspecified osteoarthritis, unspecified site; E11.40 Type 2 diabetes mellitus with diabetic neuropathy, unspecified
CPT/HCPCS: 36415; 71045; 74019; 74176; 80048; 80053; 80061; 82550; 82607; 82728; 82746; 82948; 83036; 83540; 83735; 83880; 84100; 84466; 84484; 85025; 85610; 85730; 87324; 87400; 87420; 87449; 93005; 94799; 99285; J2543; J3420; J7040; U0002

== ENCOUNTER 2024-01-27 14:53 | Emergency (ER) | payer MEDICARE, OTHER ==
[~2024-01-27] VITALS: Ht 165.1 cm; Wt 65.3 kg
[~2024-01-27 14:53] MED LIST changes: +DOCUSATE SODIU100 MG PO; +METAMUCIL FIBE3.4 GM PO; +METRONIDAZOLE500 MG PO; +SENOKOT8.6 MG PO; +SIMETHICONE80 MG PO; +SODIUM BICARBO650 MG PO; +VANCOMYCIN HCL125 MG PO
[2024-01-27 15:00] VITALS: TEMP 97.7
[2024-01-27 16:15] LABS: BASOPHILS % 0.8 % (0.0-1.0); EOSINOPHILS # (AUTO) 0.2 (0.0-0.4); EOSINOPHILS % 3.8 % (0.0-6.0); HEMATOCRIT 25.6 % (38.2-49.6); HEMOGLOBIN 8.1 g/dL (14.0-18.0); LYMPHOCYTES # (AUTO) 0.6 (1.0-3.2); LYMPHOCYTES % 14.5 % (18.0-39.1); MEAN CORPUSCULAR HEMOGLOBIN 30.9 pg (28-32); MEAN CORPUSCULAR HGB CONC 31.6 g/dL (31-35); MEAN CORPUSCULAR VOLUME 97.7 fL (81-99); MONOCYTES # (AUTO) 0.3 (0.2-0.8); MONOCYTES % 8.7 % (4.4-11.3); NEUTROPHILS # (AUTO) 2.8 (2.1-6.9); NEUTROPHILS % 71.9 % (38.7-80.0); PLATELET COUNT 203 x10e3/uL (140-360); RED BLOOD COUNT 2.62 x10e6/uL (4.3-5.7); RED CELL DISTRIBUTION WIDTH 13.8 % (11.7-14.4); WHITE BLOOD COUNT 3.93 x10e3/uL (4.8-10.8)
[2024-01-27 16:22] LABS: CLARITY,URINE CLEAR (CLEAR); COLOR,URINE YELLOW (YELLOW); PH,URINE 5.5 (5 - 7)
[2024-01-27 16:23] LABS: BILIRUBIN,URINE NEGATIVE (NEGATIVE); GLUCOSE, URINE NEGATIVE (NEGATIVE); KETONES,URINE NEGATIVE (NEGATIVE); LEUKOCYTE ESTERASE ,URINE NEGATIVE (NEGATIVE); NITRITE,URINE NEGATIVE (NEGATIVE); PROTEIN,URINE DIPSTICK NEGATIVE (NEGATIVE); URINE UROBILINOGEN 0.2 mg/dL (0.2 - 1)
[2024-01-27 16:25] LABS: ALBUMIN 3.7 g/dL (3.5-5.0); ALBUMIN/GLOBULIN RATIO 1.1 (0.8-2.0); ANION GAP 15.1 mmol/L (8-16); BILIRUBIN,TOTAL 0.9 mg/dL (0.2-1.2); CREATININE, SERUM 1.27 mg/dL (0.72-1.25); POTASSIUM 4.1 mmol/L (3.5-5.1)
[2024-01-27 16:30] VITALS: PULSE 59; RESP 15
[2024-01-27 18:48] VITALS: BP 149/79; PULSE 66; RESP 17; TEMP 98.2; O2SAT 100
== END 2024-01-27 19:13 ==
LOC: ER 15:03
DX: H02.401 Unspecified ptosis of right eyelid (principal); G20.A1 Parkinson's disease without dyskinesia, without mention of fluctuations; I10 Essential (primary) hypertension; E11.9 Type 2 diabetes mellitus without complications; I50.9 Heart failure, unspecified; I48.91 Unspecified atrial fibrillation; I25.10 Atherosclerotic heart disease of native coronary artery without angina pectoris; E78.5 Hyperlipidemia, unspecified; D64.9 Anemia, unspecified; K21.9 Gastro-esophageal reflux disease without esophagitis; R94.31 Abnormal electrocardiogram [ECG] [EKG]; Z86.718 Personal history of other venous thrombosis and embolism; Z95.5 Presence of coronary angioplasty implant and graft
CPT/HCPCS: 36415; 70450; 71045; 80053; 81001; 84484; 85025; 93005; 99284

== ENCOUNTER 2024-02-19 15:25 | Inpatient (IN) | payer MEDICARE ==
[2024-02-18 20:00] VITALS: BP 108/51; PULSE 58; RESP 20; TEMP 98.2
[~2024-02-19] VITALS: Ht 165.1 cm; Wt 65.3 kg
[2024-02-19 16:06] LABS: BASOPHILS % 0.5 % (0.0-1.0); EOSINOPHILS # (AUTO) 0.1 (0.0-0.4); EOSINOPHILS % 1.4 % (0.0-6.0); HEMATOCRIT 29.6 % (38.2-49.6); HEMOGLOBIN 9.7 g/dL (14.0-18.0); LYMPHOCYTES # (AUTO) 0.7 (1.0-3.2); MEAN CORPUSCULAR HEMOGLOBIN 31.4 pg (28-32); MEAN CORPUSCULAR HGB CONC 32.8 g/dL (31-35); MEAN CORPUSCULAR VOLUME 95.8 fL (81-99); MONOCYTES # (AUTO) 0.4 (0.2-0.8); NEUTROPHILS # (AUTO) 2.5 (2.1-6.9); NEUTROPHILS % 68.1 % (38.7-80.0); PLATELET COUNT 166 x10e3/uL (140-360); RED BLOOD COUNT 3.09 x10e6/uL (4.3-5.7); RED CELL DISTRIBUTION WIDTH 14.2 % (11.7-14.4); WHITE BLOOD COUNT 3.64 x10e3/uL (4.8-10.8)
[2024-02-19 16:11] LABS: INR 1.25; PROTHROMBIN TIME 16.4 seconds (11.9-14.5)
[2024-02-19 16:12] LABS: PARTIAL THROMBOPLASTIN TIME 36.5 seconds (23.8-35.5)
[2024-02-19 16:19] LABS: ALBUMIN 4.2 g/dL (3.5-5.0); ALBUMIN/GLOBULIN RATIO 1.4 (0.8-2.0); ALKALINE PHOSPHATASE 94 IU/L (40-150); ANION GAP 17.2 mmol/L (8-16); BILIRUBIN,TOTAL 0.8 mg/dL (0.2-1.2); CALCIUM 9.5 mg/dL (8.4-10.2); CARBON DIOXIDE 23 mmol/L (22-29); CHLORIDE 105 mmol/L (98-107); CREATINE KINASE 199 IU/L (30-200); CREATININE, SERUM 1.98 mg/dL (0.72-1.25); EST GLOMERULAR FILTRATION RATE 35 ML/MIN (>=60); GLUCOSE 148 mg/dL (74-118); SODIUM 142 mmol/L (136-145); TOTAL PROTEIN 7.2 g/dL (6.5-8.1)
[2024-02-19 16:20] LABS: ALANINE AMINOTRANSFERASE < 6 IU/L (0-55); POTASSIUM 3.2 mmol/L (3.5-5.1)
[2024-02-19 16:21] LABS: TROPONIN I 0.005 ng/mL (0-0.300)
[2024-02-19] MEDS: SODIUM CHLORIDE 0.9% 1000ML 1,000 ML IV STA (16:38)
[2024-02-19 16:50] LABS: BLOOD UREA NITROGEN 47 mg/dL (7-26); BUN/CREATININE RATIO 24 (6-25)
[2024-02-19 17:02] LABS: BILIRUBIN,URINE NEGATIVE (NEGATIVE); CLARITY,URINE SL CLOUDY (CLEAR); COLOR,URINE YELLOW (YELLOW); GLUCOSE, URINE NEGATIVE (NEGATIVE); KETONES,URINE NEGATIVE (NEGATIVE); LEUKOCYTE ESTERASE ,URINE NEGATIVE (NEGATIVE); NITRITE,URINE NEGATIVE (NEGATIVE); PH,URINE 5.5 (5 - 7); PROTEIN,URINE DIPSTICK NEGATIVE (NEGATIVE); URINE UROBILINOGEN 0.2 mg/dL (0.2 - 1)
[2024-02-19 17:10] LABS: RBC,URINE 0-5 /HPF (0-5); WBC,URINE (MAN) 0-5 /HPF (0-5)
[2024-02-19 17:11] LABS: BACTERIA,URINE RARE /HPF; EPITHELIAL CELLS,URINE RARE /LPF
[2024-02-19] MEDS ORDERED: ONDANSETRON HCL INJ 2MG/ML 2ML 2 MG/ML VIAL IV PRN (19:00)
[2024-02-19] MEDS: SODIUM CHLORIDE 0.9% 1000ML 1,000 ML IV SCH (20:33)
[2024-02-19] MEDS ORDERED: ACETAMINOPHEN 325 MG TAB PO PRN (22:00)
[2024-02-19] MEDS ORDERED: DEXTROSE 50% SYRINGE 50 ML IV PRN (22:00)
[2024-02-19] MEDS ORDERED: BISACODYL 10 MG SUPP PR PRN (22:00)
[2024-02-19] MEDS ORDERED: HYDRALAZINE HCL 20 MG/ML VIAL IV PRN (22:00)
[2024-02-19 22:21] VITALS: PULSE 58; RESP 17; TEMP 98.2
[2024-02-19 22:45] VITALS: BP 108/51; PULSE 58; RESP 17; TEMP 98.2; O2SAT 95
[2024-02-20 05:31] LABS: BASOPHILS % 0.8 % (0.0-1.0); EOSINOPHILS # (AUTO) 0.2 (0.0-0.4); EOSINOPHILS % 3.8 % (0.0-6.0); HEMATOCRIT 29.4 % (38.2-49.6); HEMOGLOBIN 9.4 g/dL (14.0-18.0); LYMPHOCYTES # (AUTO) 0.7 (1.0-3.2); LYMPHOCYTES % 16.4 % (18.0-39.1); MEAN CORPUSCULAR HEMOGLOBIN 31.1 pg (28-32); MEAN CORPUSCULAR VOLUME 97.4 fL (81-99); MONOCYTES # (AUTO) 0.3 (0.2-0.8); MONOCYTES % 8.6 % (4.4-11.3); NEUTROPHILS # (AUTO) 2.8 (2.1-6.9); NEUTROPHILS % 69.9 % (38.7-80.0); PLATELET COUNT 157 x10e3/uL (140-360); RED BLOOD COUNT 3.02 x10e6/uL (4.3-5.7); RED CELL DISTRIBUTION WIDTH 14.1 % (11.7-14.4); WHITE BLOOD COUNT 3.97 x10e3/uL (4.8-10.8)
[2024-02-20 06:09] LABS: ALBUMIN 3.7 g/dL (3.5-5.0); ALBUMIN/GLOBULIN RATIO 1.3 (0.8-2.0); ALKALINE PHOSPHATASE 87 IU/L (40-150); ANION GAP 15.8 mmol/L (8-16); BILIRUBIN,TOTAL 0.7 mg/dL (0.2-1.2); BLOOD UREA NITROGEN 43 mg/dL (7-26); BUN/CREATININE RATIO 30 (6-25); CALCIUM 9.1 mg/dL (8.4-10.2); CARBON DIOXIDE 22 mmol/L (22-29); CHLORIDE 111 mmol/L (98-107); CREATININE, SERUM 1.45 mg/dL (0.72-1.25); EST GLOMERULAR FILTRATION RATE 51 ML/MIN (>=60); GLUCOSE 122 mg/dL (74-118); SODIUM 146 mmol/L (136-145); TOTAL PROTEIN 6.6 g/dL (6.5-8.1)
[2024-02-20 06:10] LABS: ALANINE AMINOTRANSFERASE < 6 IU/L (0-55); POTASSIUM 2.8 mmol/L (3.5-5.1)
[2024-02-20 06:49] LABS: TROPONIN I 0.001 ng/mL (0-0.300)
[2024-02-20 07:05] LABS: FERRITIN 188.11 ng/mL (21.81-274.66)
[2024-02-20 07:42] VITALS: BP 145/59; PULSE 61; RESP 18; TEMP 97.7; O2SAT 98
[2024-02-20] MEDS: DOCUSATE SODIUM 100 MG CAP PO SCH (09:26)
[2024-02-20] MEDS: ISOSORBIDE MONONITRATE 30 MG TAB CR PO SCH (09:27)
[2024-02-20] MEDS: APIXABAN 2.5 MG TABLET PO SCH (09:27)
[2024-02-20] MEDS: POTASSIUM CHLORIDE 10MEQ EA PO ONE (09:27)
[2024-02-20] MEDS: CARBIDOPA/LEVODOPA 25/100 TAB PO SCH (09:28)
[2024-02-20] MEDS: SENNOSIDES 8.6 MG TAB PO SCH (09:28)
[2024-02-20] MEDS: INSULIN LISPRO 100 UNIT/1 ML 3ML VIAL SQ SCH (09:29)
[2024-02-20 09:45] VITALS: BP 145/59; PULSE 61; RESP 18; TEMP 97.7; O2SAT 98
[2024-02-20 11:39] VITALS: BP 126/53; PULSE 87; RESP 17; TEMP 98; O2SAT 100
[2024-02-20 13:02] LABS: CREATINE KINASE 147 IU/L (30-200)
[2024-02-20 13:19] LABS: TROPONIN I < 0.001 ng/mL (0-0.300)
[2024-02-20 15:49] VITALS: BP 125/56; PULSE 64; RESP 18; TEMP 99.2; O2SAT 99
[2024-02-20 20:00] VITALS: BP 127/57; PULSE 62; RESP 17; TEMP 98.8; O2SAT 100
[2024-02-20] MEDS: METOPROLOL SUCCINATE 25 MG TAB XL PO SCH (20:23)
[2024-02-21] VITALS (7 sets, daily range): BP systolic 133–149; BP diastolic 54–69; PULSE 54–64; RESP 17–18; TEMP 97.5–98.6; O2SAT 98–100
[2024-02-21 05:01] LABS: BASOPHILS % 0.6 % (0.0-1.0); EOSINOPHILS # (AUTO) 0.2 (0.0-0.4); EOSINOPHILS % 3.4 % (0.0-6.0); HEMATOCRIT 29.2 % (38.2-49.6); HEMOGLOBIN 9.4 g/dL (14.0-18.0); LYMPHOCYTES # (AUTO) 0.8 (1.0-3.2); LYMPHOCYTES % 16.6 % (18.0-39.1); MEAN CORPUSCULAR HEMOGLOBIN 31.1 pg (28-32); MEAN CORPUSCULAR HGB CONC 32.2 g/dL (31-35); MEAN CORPUSCULAR VOLUME 96.7 fL (81-99); MONOCYTES # (AUTO) 0.3 (0.2-0.8); MONOCYTES % 6.6 % (4.4-11.3); NEUTROPHILS # (AUTO) 3.4 (2.1-6.9); NEUTROPHILS % 72.8 % (38.7-80.0); PLATELET COUNT 141 x10e3/uL (140-360); RED BLOOD COUNT 3.02 x10e6/uL (4.3-5.7); WHITE BLOOD COUNT 4.69 x10e3/uL (4.8-10.8)
[2024-02-21 05:25] LABS: ANION GAP 14.1 mmol/L (8-16); CALCIUM 8.7 mg/dL (8.4-10.2); CREATININE, SERUM 1.21 mg/dL (0.72-1.25)
[2024-02-21 05:34] LABS: POTASSIUM 3.1 mmol/L (3.5-5.1)
[2024-02-21] MEDS: HYDROCODONE/APAP 5MG-325MG TAB PO PRN (06:09)
[2024-02-21] MEDS: POTASSIUM CHLORIDE 10MEQ EA PO ONE (09:07)
[2024-02-21] MEDS ORDERED: OLANZAPINE 5 MG TAB PO PRN (15:45)
[2024-02-21] MEDS: QUETIAPINE FUMARATE 25 MG TAB PO SCH (20:54)
[2024-02-21] MEDS: ATORVASTATIN 40 MG TAB PO SCH (20:54)
[2024-02-21] MEDS: INSULIN GLARGINE 100 UNITS/ML VIAL SQ SCH (21:06)
[2024-02-22] VITALS (8 sets, daily range): BP systolic 95–157; BP diastolic 42–61; PULSE 53–66; RESP 17–20; TEMP 98.1–98.9; O2SAT 94–100
[2024-02-22 05:39] LABS: BASOPHILS % 0.4 % (0.0-1.0); EOSINOPHILS # (AUTO) 0.2 (0.0-0.4); EOSINOPHILS % 4.7 % (0.0-6.0); HEMATOCRIT 27.7 % (38.2-49.6); HEMOGLOBIN 9.3 g/dL (14.0-18.0); LYMPHOCYTES # (AUTO) 0.7 (1.0-3.2); LYMPHOCYTES % 13.8 % (18.0-39.1); MEAN CORPUSCULAR HGB CONC 33.6 g/dL (31-35); MEAN CORPUSCULAR VOLUME 92.3 fL (81-99); MONOCYTES # (AUTO) 0.4 (0.2-0.8); MONOCYTES % 6.8 % (4.4-11.3); NEUTROPHILS # (AUTO) 3.8 (2.1-6.9); NEUTROPHILS % 74.1 % (38.7-80.0); PLATELET COUNT 140 x10e3/uL (140-360); RED CELL DISTRIBUTION WIDTH 13.9 % (11.7-14.4); WHITE BLOOD COUNT 5.14 x10e3/uL (4.8-10.8)
[2024-02-22 05:59] LABS: CALCIUM 8.9 mg/dL (8.4-10.2); CREATININE, SERUM 1.11 mg/dL (0.72-1.25)
[2024-02-22] MEDS: POTASSIUM CHLORIDE 10MEQ EA PO ONE (12:50)
[2024-02-22] MEDS: POTASSIUM CHLORIDE 20MEQ/100ML 100 ML IV SCH (13:16)
[2024-02-23 00:10] VITALS: BP 143/68; PULSE 53; RESP 18; TEMP 98.3; O2SAT 97
[2024-02-23 04:15] VITALS: BP 123/44; PULSE 51; RESP 18; TEMP 97.4
[2024-02-23 08:00] VITALS: BP 152/60; PULSE 59; RESP 17; TEMP 97.6; O2SAT 99
[2024-02-23 08:06] LABS: BASOPHILS % 0.4 % (0.0-1.0); EOSINOPHILS # (AUTO) 0.2 (0.0-0.4); EOSINOPHILS % 4.6 % (0.0-6.0); HEMATOCRIT 30.5 % (38.2-49.6); HEMOGLOBIN 9.8 g/dL (14.0-18.0); LYMPHOCYTES # (AUTO) 0.6 (1.0-3.2); LYMPHOCYTES % 12.8 % (18.0-39.1); MEAN CORPUSCULAR HGB CONC 32.1 g/dL (31-35); MEAN CORPUSCULAR VOLUME 96.5 fL (81-99); MONOCYTES # (AUTO) 0.3 (0.2-0.8); NEUTROPHILS # (AUTO) 3.8 (2.1-6.9); NEUTROPHILS % 75.8 % (38.7-80.0); PLATELET COUNT 124 x10e3/uL (140-360); RED BLOOD COUNT 3.16 x10e6/uL (4.3-5.7); RED CELL DISTRIBUTION WIDTH 13.9 % (11.7-14.4); WHITE BLOOD COUNT 5.01 x10e3/uL (4.8-10.8)
[2024-02-23 08:57] LABS: ANION GAP 15.4 mmol/L (8-16); CALCIUM 8.7 mg/dL (8.4-10.2); CREATININE, SERUM 1.04 mg/dL (0.72-1.25); MAGNESIUM 1.7 MG/DL (1.3-2.1)
[2024-02-23 09:00] LABS: POTASSIUM 3.4 mmol/L (3.5-5.1)
[2024-02-23] MEDS: MAGNESIUM OXIDE 400 MG TAB PO ONE (11:46)
[2024-02-23] MEDS: POTASSIUM CHLORIDE 10MEQ EA PO ONE (11:46)
[2024-02-23 12:00] VITALS: BP 120/60; PULSE 73; RESP 18; TEMP 97.8; O2SAT 97
[2024-02-23 16:15] VITALS: BP 149/67; PULSE 58; RESP 18; TEMP 98.2; O2SAT 99
[2024-02-23] MEDS: DICYCLOMINE HCL 10 MG CAP PO SCH (16:21)
[2024-02-23 20:00] VITALS: BP 128/58; PULSE 56; RESP 20; TEMP 97.7; O2SAT 98
[2024-02-24] VITALS: BP 130/60; PULSE 58; RESP 20; TEMP 98; O2SAT 98
[2024-02-24 04:00] VITALS: BP 127/60; PULSE 56; RESP 20; TEMP 98.1; O2SAT 98
[2024-02-24 07:28] LABS: BASOPHILS % 0.4 % (0.0-1.0); EOSINOPHILS # (AUTO) 0.3 (0.0-0.4); EOSINOPHILS % 5.1 % (0.0-6.0); HEMATOCRIT 28.3 % (38.2-49.6); HEMOGLOBIN 9.3 g/dL (14.0-18.0); LYMPHOCYTES # (AUTO) 0.5 (1.0-3.2); LYMPHOCYTES % 9.5 % (18.0-39.1); MEAN CORPUSCULAR HEMOGLOBIN 31.4 pg (28-32); MEAN CORPUSCULAR HGB CONC 32.9 g/dL (31-35); MEAN CORPUSCULAR VOLUME 95.6 fL (81-99); MONOCYTES # (AUTO) 0.3 (0.2-0.8); NEUTROPHILS # (AUTO) 4.3 (2.1-6.9); NEUTROPHILS % 78.8 % (38.7-80.0); PLATELET COUNT 141 x10e3/uL (140-360); RED BLOOD COUNT 2.96 x10e6/uL (4.3-5.7); RED CELL DISTRIBUTION WIDTH 13.9 % (11.7-14.4); WHITE BLOOD COUNT 5.46 x10e3/uL (4.8-10.8)
[2024-02-24 07:46] LABS: ANION GAP 13.5 mmol/L (8-16); CALCIUM 8.2 mg/dL (8.4-10.2); CREATININE, SERUM 0.95 mg/dL (0.72-1.25); MAGNESIUM 1.7 MG/DL (1.3-2.1); POTASSIUM 3.5 mmol/L (3.5-5.1)
[2024-02-24 08:00] VITALS: BP 122/74; PULSE 65; RESP 16; RESP 18; TEMP 98.2; O2SAT 99
[2024-02-24 12:00] VITALS: BP 165/63; PULSE 58; RESP 18; TEMP 97.7; O2SAT 99
[2024-02-24 16:30] VITALS: BP 140/61; PULSE 66; RESP 18; TEMP 98.6; O2SAT 99
[2024-02-24 19:42] VITALS: BP 125/56; PULSE 58; RESP 18; TEMP 98.4; O2SAT 100
[2024-02-25] VITALS (8 sets, daily range): BP systolic 120–156; BP diastolic 55–61; PULSE 54–60; RESP 16–18; TEMP 97.6–98.6; O2SAT 98–100
[2024-02-25 06:54] LABS: ALBUMIN 3.3 g/dL (3.5-5.0); ALBUMIN/GLOBULIN RATIO 1.1 (0.8-2.0); ANION GAP 13.2 mmol/L (8-16); BILIRUBIN,TOTAL 0.9 mg/dL (0.2-1.2); CALCIUM 8.9 mg/dL (8.4-10.2); CREATININE, SERUM 1.12 mg/dL (0.72-1.25); TOTAL PROTEIN 6.2 g/dL (6.5-8.1)
[2024-02-25 07:23] LABS: POTASSIUM 3.2 mmol/L (3.5-5.1)
[2024-02-25] MEDS: POTASSIUM CHLORIDE 20 MEQ TAB CR PO STA (10:56)
[2024-02-26 05:11] LABS: BASOPHILS % 0.5 % (0.0-1.0); EOSINOPHILS # (AUTO) 0.3 (0.0-0.4); EOSINOPHILS % 6.2 % (0.0-6.0); HEMATOCRIT 28.3 % (38.2-49.6); HEMOGLOBIN 9.1 g/dL (14.0-18.0); LYMPHOCYTES # (AUTO) 0.8 (1.0-3.2); LYMPHOCYTES % 18.2 % (18.0-39.1); MEAN CORPUSCULAR HEMOGLOBIN 30.6 pg (28-32); MEAN CORPUSCULAR HGB CONC 32.2 g/dL (31-35); MEAN CORPUSCULAR VOLUME 95.3 fL (81-99); MONOCYTES # (AUTO) 0.4 (0.2-0.8); MONOCYTES % 8.5 % (4.4-11.3); NEUTROPHILS # (AUTO) 2.8 (2.1-6.9); NEUTROPHILS % 66.4 % (38.7-80.0); PLATELET COUNT 152 x10e3/uL (140-360); RED BLOOD COUNT 2.97 x10e6/uL (4.3-5.7); RED CELL DISTRIBUTION WIDTH 13.8 % (11.7-14.4); WHITE BLOOD COUNT 4.22 x10e3/uL (4.8-10.8)
[2024-02-26 05:33] LABS: ALBUMIN 3.3 g/dL (3.5-5.0); ALBUMIN/GLOBULIN RATIO 1.1 (0.8-2.0); ALKALINE PHOSPHATASE 81 IU/L (40-150); ANION GAP 12.4 mmol/L (8-16); BILIRUBIN,TOTAL 0.7 mg/dL (0.2-1.2); BLOOD UREA NITROGEN 23 mg/dL (7-26); BUN/CREATININE RATIO 22 (6-25); CALCIUM 8.8 mg/dL (8.4-10.2); CARBON DIOXIDE 20 mmol/L (22-29); CHLORIDE 113 mmol/L (98-107); CREATININE, SERUM 1.06 mg/dL (0.72-1.25); EST GLOMERULAR FILTRATION RATE 74 ML/MIN (>=60); GLUCOSE 88 mg/dL (74-118); SODIUM 142 mmol/L (136-145); TOTAL PROTEIN 6.3 g/dL (6.5-8.1)
[2024-02-26 05:36] LABS: ALANINE AMINOTRANSFERASE < 6 IU/L (0-55); POTASSIUM 3.4 mmol/L (3.5-5.1)
[2024-02-26 07:54] VITALS: BP 136/57; PULSE 55; RESP 16; TEMP 98.6; O2SAT 99
[2024-02-26 07:57] VITALS: BP 136/57; PULSE 55; RESP 16; TEMP 98.6; O2SAT 99
[2024-02-26 12:00] VITALS: BP 108/58; PULSE 55; RESP 16; TEMP 98.6; O2SAT 99
[2024-02-26 16:00] VITALS: BP 130/79; PULSE 61; RESP 16; TEMP 98.8; O2SAT 99
[2024-02-26] MEDS: POTASSIUM CHLORIDE 10MEQ EA PO ONE (16:55)
[2024-02-26 22:32] VITALS: BP 125/52; PULSE 54; RESP 16; TEMP 98.8; O2SAT 100
[2024-02-26 22:34] VITALS: BP 125/52; PULSE 54; RESP 16; TEMP 98.8; O2SAT 100
[2024-02-27 05:14] LABS: BASOPHILS % 0.4 % (0.0-1.0); EOSINOPHILS # (AUTO) 0.2 (0.0-0.4); EOSINOPHILS % 4.1 % (0.0-6.0); HEMATOCRIT 27.4 % (38.2-49.6); HEMOGLOBIN 9.3 g/dL (14.0-18.0); LYMPHOCYTES # (AUTO) 0.7 (1.0-3.2); LYMPHOCYTES % 14.6 % (18.0-39.1); MEAN CORPUSCULAR HEMOGLOBIN 31.1 pg (28-32); MEAN CORPUSCULAR HGB CONC 33.9 g/dL (31-35); MEAN CORPUSCULAR VOLUME 91.6 fL (81-99); MONOCYTES # (AUTO) 0.4 (0.2-0.8); MONOCYTES % 7.2 % (4.4-11.3); NEUTROPHILS # (AUTO) 3.6 (2.1-6.9); NEUTROPHILS % 73.5 % (38.7-80.0); PLATELET COUNT 159 x10e3/uL (140-360); RED BLOOD COUNT 2.99 x10e6/uL (4.3-5.7); RED CELL DISTRIBUTION WIDTH 13.9 % (11.7-14.4); WHITE BLOOD COUNT 4.85 x10e3/uL (4.8-10.8)
[2024-02-27 05:45] LABS: ANION GAP 14.6 mmol/L (8-16); CALCIUM 8.3 mg/dL (8.4-10.2); CREATININE, SERUM 1.1 mg/dL (0.72-1.25); MAGNESIUM 1.8 MG/DL (1.3-2.1); POTASSIUM 3.6 mmol/L (3.5-5.1)
[2024-02-27 08:18] VITALS: BP 138/62; PULSE 88; RESP 19; TEMP 99.1; O2SAT 99
[2024-02-27 09:00] VITALS: BP 138/62; PULSE 88; RESP 19; TEMP 99.1; O2SAT 99
[2024-02-27 11:50] VITALS: BP 86/51; PULSE 58; RESP 18; TEMP 98.3; O2SAT 99
[2024-02-27] MEDS: MAGNESIUM OXIDE 400 MG TAB PO ONE (11:58)
[2024-02-27] MEDS: SODIUM CHLORIDE 0.9% 1000ML 500 ML IV ONE (11:58)
[2024-02-27] MEDS: POTASSIUM CHLORIDE 10MEQ EA PO ONE (11:58)
[2024-02-27 13:20] VITALS: BP 95/51
[2024-02-27] MEDS ORDERED: ONDANSETRON HCL 4 MG ORAL DISINTEGRATING TAB PO PRN (15:15)
[2024-02-27 16:00] VITALS: BP 125/65; PULSE 58; RESP 18; TEMP 98.8; O2SAT 100
[2024-02-27] MEDS ORDERED: APIXABAN 2.5 MG TABLET PO SCH (21:00)
== END 2024-02-27 17:16 | disposition home or self-care (01) | DRG 64 ==
LOC: ER 15:30 → ERHOLD 19:02 → MED/SURG 22:42
PROVIDERS: ADMIT Internal Medicine; ATTEND Internal Medicine
DX: I63.9 Cerebral infarction, unspecified (principal); G92.8 Other toxic encephalopathy; I13.0 Hypertensive heart and chronic kidney disease with heart failure and stage 1 through stage 4 chronic kidney disease, or unspecified chronic kidney disease; I50.32 Chronic diastolic (congestive) heart failure; N17.9 Acute kidney failure, unspecified; F02.82 Dementia in other diseases classified elsewhere, unspecified severity, with psychotic disturbance; F02.83 Dementia in other diseases classified elsewhere, unspecified severity, with mood disturbance; G81.94 Hemiplegia, unspecified affecting left nondominant side; F29 Unspecified psychosis not due to a substance or known physiological condition; H49.01 Third [oculomotor] nerve palsy, right eye; E86.0 Dehydration; G20.A1 Parkinson's disease without dyskinesia, without mention of fluctuations; E11.51 Type 2 diabetes mellitus with diabetic peripheral angiopathy without gangrene; I48.0 Paroxysmal atrial fibrillation; E11.22 Type 2 diabetes mellitus with diabetic chronic kidney disease; N18.31 Chronic kidney disease, stage 3a; I25.10 Atherosclerotic heart disease of native coronary artery without angina pectoris; K21.9 Gastro-esophageal reflux disease without esophagitis; E87.6 Hypokalemia; I95.9 Hypotension, unspecified; R00.1 Bradycardia, unspecified; E78.5 Hyperlipidemia, unspecified; R29.701 NIHSS score 1; R53.81 Other malaise; R47.1 Dysarthria and anarthria; R47.81 Slurred speech; H53.2 Diplopia; K59.00 Constipation, unspecified; Z53.09 Procedure and treatment not carried out because of other contraindication; Z79.4 Long term (current) use of insulin; Z79.01 Long term (current) use of anticoagulants; Z96.82 Presence of neurostimulator; I25.2 Old myocardial infarction; Z95.5 Presence of coronary angioplasty implant and graft; Z86.718 Personal history of other venous thrombosis and embolism; Z99.3 Dependence on wheelchair; Z91.041 Radiographic dye allergy status; Z91.018 Allergy to other foods; Z87.891 Personal history of nicotine dependence
CPT/HCPCS: 36415; 70450; 71045; 72125; 74018; 74176; 80048; 80053; 81001; 82140; 82550; 82607; 82728; 82948; 83036; 83540; 83735; 84132; 84443; 84466; 84484; 85025; 85610; 85730; 87086; 93005; 95819; 96372; 99252; 99284; J1815; J2470; J3480; J7030